=== PATIENT | male | born 1945 | race Caucasian/White ===

== ENCOUNTER 2021-02-06 07:20 | Outpatient (REF) | payer MEDICARE, SELFPAY ==
--- NOTE | ~2021-02-06 | CT_ITS ---
EXAMINATION: CT HEAD WITHOUT CONTRAST CLINICAL INFORMATION: R51.9 - Headache COMPARISON: None TECHNIQUE: Contiguous axial imaging was performed from the skull base to vertex without intravenous administration of contrast. Additional 2-D coronal and sagittal reformatted images are generated on the CT workstation and uploaded to PACS. This CT examination was performed using dose optimization techniques as appropriate, variously including the following: *Automated exposure control *Adjustment of mA and/or kV according to patient size (this includes techniques or standardized protocols for targeted exams where dose is matched to indication/reason for exam; i.e. extremities or head) *Use of iterative reconstruction technique DLP: 769 mGy-cm FINDINGS: There is no intracranial hemorrhage, hematoma, or extra-axial fluid collection. The ventricles are normal in size. There is no hydrocephalus, edema, or mass effect. The pa-white matter differentiation appears symmetric. There is no visible acute territorial infarct or mass lesion. The calvarium appears intact. There is no pneumocephalus or orbital emphysema. There is mild mucosal thickening maxillary sinuses, greater right maxillary antrum. No air-fluid levels. The middle ears and mastoid air cells are well-aerated and clear. CT/CT head/brain wo con IMPRESSION: No acute intracranial abnormality.
== END 2021-02-06 07:21 | disposition home or self-care (01) ==
LOC: HO.CT 07:20
PROVIDERS: Visit Provider Internal Medicine
DX: R51.9 Headache, unspecified (principal)
CPT/HCPCS: 70450

== ENCOUNTER 2021-06-19 08:49 | Outpatient (REF) | payer MEDICARE, SELFPAY ==
[2021-06-19 11:39] LABS: Hematocrit 42.6 % (42-52); Mean Corpuscular HGB Conc 32.9 g/dl (31.0-36.0); Mean Corpuscular Hemoglobin 31.7 pg (27.0-33.0); Mean Corpuscular Volume 96.4 fL (80-98); Platelet Count 172 X10*3/uL (160-400); Red Blood Count 4.42 X10*6/uL (4.60-5.80); Red Cell Distribution Width 12.5 % (11.0-16.0); White Blood Count 5.7 X10*3/uL (4.8-10.8)
[2021-06-19 11:53] LABS: Alanine Aminotransferase 20 U/L (0-40); Albumin Level 4.4 g/dL (3.5-5.0); Alkaline Phosphatase 49 U/L (39-117); Anion Gap 10 (12-20); Aspartate Amino Transferase 21 U/L (5-37); Bilirubin Total 1.1 mg/dL (0.0-1.0); Blood Urea Nitrogen 14 mg/dL (9-16); Calcium 9.4 mg/dL (8.4-10.2); Carbon Dioxide 28 mmol/L (22-29); Chloride 107 mmol/L (96-108); Cholesterol 143 mg/dL; Estimated Glomerular Filt Rate > 60; Glucose Fasting 91 mg/dL (60-99); HDL Cholesterol 54 mg/dL; LDL Cholesterol Calculated 79 mg/dl; Potassium 4.3 mmol/L (3.3-5.1); Sodium 141 mmol/L (135-145); Total Protein 7.3 g/dL (6.5-8.0); Triglycerides 54 mg/dL
[2021-06-19 12:04] LABS: TSH reflex Free T4 0.85 uIU/mL (0.32-4.0)
[2021-06-19 12:46] LABS: Vitamin B12 274 pg/mL (200-900)
[2021-06-19 12:54] LABS: Prostate Specific Antigen Scr 0.66 ng/mL (<0.05-4.0)
[2021-06-23 10:10] LABS: Vitamin B1 9 nmol/L (8-30)
== END 2021-06-19 08:50 | disposition home or self-care (01) ==
LOC: HO.HMGCLDS 08:49
PROVIDERS: PCP Internal Medicine; Visit Provider Internal Medicine
DX: Z00.00 Encounter for general adult medical examination without abnormal findings (principal); Z12.5 Encounter for screening for malignant neoplasm of prostate; I10 Essential (primary) hypertension; N40.0 Benign prostatic hyperplasia without lower urinary tract symptoms; R51.9 Headache, unspecified; R41.3 Other amnesia
CPT/HCPCS: 36415; 80053; 80061; 82607; 84153; 84425; 84443; 85027

== ENCOUNTER 2022-02-07 06:49 | Outpatient (REF) | payer MEDICARE, SELFPAY ==
--- NOTE | ~2022-02-07 | XR_ITS ---
EXAMINATION: XR CHEST CLINICAL INFORMATION: Generalized hyperhidrosis. COMPARISON: None TECHNIQUE: 2 views of the chest were obtained. FINDINGS: Hyperinflated lung field is present bilaterally. Both lungs are clear. The cardiomediastinal silhouette is within normal limit. No evidence of any pleural effusion or pneumothorax. Prominent bowel loops are visualized within the upper abdomen with few small air-fluid level. Mild increased midthoracic kyphosis, mild diffuse osteopenia and mild multilevel degenerative spondylosis related changes are noted in the spine. XR/XR chest 2V IMPRESSION: Hyperinflated lung field, may represent obstructing airway disease.
[2022-02-07 11:35] LABS: Hematocrit 41.2 % (42.0-52.0); Hemoglobin 13.3 g/dl (14.0-18.0); Mean Corpuscular HGB Conc 32.3 g/dl (31.0-36.0); Mean Corpuscular Hemoglobin 31.5 pg (27.0-33.0); Mean Corpuscular Volume 97.6 fL (80.0-98.0); Platelet Count 190 X10*3/uL (160-400); Red Blood Count 4.22 X10*6/uL (4.60-5.80); Red Cell Distribution Width 13.2 % (11.0-16.0); White Blood Count 5.3 X10*3/uL (4.8-10.8)
[2022-02-07 11:52] LABS: Alanine Aminotransferase 17 U/L (0-40); Alkaline Phosphatase 51 U/L (39-117); Anion Gap 10 (12-20); Aspartate Amino Transferase 22 U/L (5-37); Blood Urea Nitrogen 17 mg/dL (9-16); Carbon Dioxide 28 mmol/L (22-29); Chloride 107 mmol/L (96-108); Estimated Glomerular Filt Rate > 60; Glucose Fasting 94 mg/dL (60-99); Potassium 4.1 mmol/L (3.3-5.1); Sodium 141 mmol/L (135-145); Total Protein 6.9 g/dL (6.5-8.0)
[2022-02-07 12:15] LABS: TSH reflex Free T4 1.17 uIU/mL (0.32-4.0)
== END 2022-02-07 06:50 | disposition home or self-care (01) ==
LOC: HO.HMGCLDS 06:49
PROVIDERS: Visit Provider Internal Medicine
DX: R10.9 Unspecified abdominal pain (principal); R61 Generalized hyperhidrosis
CPT/HCPCS: 36415; 71046; 80053; 84443; 85027

== ENCOUNTER 2022-02-08 08:10 | Outpatient (REF) | payer MEDICARE, SELFPAY | END 2022-02-08 08:11 | disposition home or self-care (01) | LOC: HO.HMGCLNP 08:10 | PROVIDERS: Visit Provider Internal Medicine | DX: K29.70 Gastritis, unspecified, without bleeding (principal) | CPT/HCPCS: 87338 ==

== ENCOUNTER 2022-04-04 08:48 | Outpatient (REF) | payer MEDICARE, SELFPAY ==
[2022-04-04 11:18] LABS: MANUAL DIFF FLAG NO
[2022-04-04 11:29] LABS: Basophils Percent Auto 0.4 % (0-2); Eosinophils Absolute Auto 0.1 X10*3/uL (0.0-0.4); Eosinophils Percent Auto 1.8 % (0-4); Hematocrit 39.5 % (42.0-52.0); Hemoglobin 13.1 g/dl (14.0-18.0); Imm Gran Abs Auto 0.02 X10*3/uL (0.00-0.03); Imm Gran Pct Auto 0.4 % (0.0-0.4); Lymphocytes Absolute Auto 1.2 X10*3/uL (1.2-4.9); Lymphocytes Percent Auto 21.2 % (20-40); Mean Corpuscular HGB Conc 33.2 g/dl (31.0-36.0); Mean Corpuscular Hemoglobin 31.9 pg (27.0-33.0); Mean Corpuscular Volume 96.1 fL (80.0-98.0); Mean Platelet Volume 10.9 fL (9.4-12.4); Monocytes Absolute Auto 0.3 X10*3/uL (0.1-1.2); Monocytes Percent Auto 5.5 % (2-11); Neutrophils Absolute Auto 3.8 x10*3/uL (2.0-8.3); Neutrophils Percent Auto 70.7 % (45-73); Platelet Count 180 X10*3/uL (160-400); Red Blood Count 4.11 X10*6/uL (4.60-5.80); Red Cell Distribution Width 13.2 % (11.0-16.0); White Blood Count 5.4 X10*3/uL (4.8-10.8)
[2022-04-04 11:54] LABS: Alanine Aminotransferase 43 U/L (0-40); Albumin Level 4.2 g/dL (3.5-5.0); Alkaline Phosphatase 52 U/L (39-117); Anion Gap 11 (12-20); Aspartate Amino Transferase 30 U/L (5-37); Bilirubin Total 0.6 mg/dL (0.0-1.0); Blood Urea Nitrogen 15 mg/dL (9-16); Calcium 9.4 mg/dL (8.4-10.2); Carbon Dioxide 25 mmol/L (22-29); Chloride 111 mmol/L (96-108); Estimated Glomerular Filt Rate > 60; Glucose Random 75 mg/dL (60-115); Potassium 3.5 mmol/L (3.3-5.1); Sodium 143 mmol/L (135-145); Total Protein 7.1 g/dL (6.5-8.0)
[2022-04-04 12:01] LABS: Erythrocyte Sedimentation Rate 6 MM/HR (0-15)
== END 2022-04-04 08:49 | disposition home or self-care (01) ==
LOC: HO.HMGCLDS 08:48
PROVIDERS: PCP Internal Medicine; Visit Provider Internal Medicine
DX: R19.7 Diarrhea, unspecified (principal)
CPT/HCPCS: 36415; 80053; 85025; 85652

== ENCOUNTER 2022-04-07 07:08 | Outpatient (REF) | payer MEDICARE, SELFPAY ==
[2022-04-07 12:39] LABS: Leukocytes Stool Qualitative NEGATIVE (NEGATIVE)
== END 2022-04-07 07:09 | disposition home or self-care (01) ==
LOC: HO.HMGCLNP 07:08
PROVIDERS: Visit Provider Internal Medicine
DX: R19.7 Diarrhea, unspecified (principal)
CPT/HCPCS: 87045; 87046; 87329; 89055

== ENCOUNTER 2022-04-11 12:26 | Outpatient (REF) | payer MEDICARE, SELFPAY ==
[2022-04-11 14:44] LABS: Iron 119 mcg/dL (45-160); Percent Iron Saturation 42 % (15-50); Total Iron Binding Capacity 286 mcg/dL (228-428); Unsaturated Iron Binding 167 ug/dL
[2022-04-11 15:16] LABS: Vitamin B12 667 pg/mL (200-900)
== END 2022-04-11 12:27 | disposition home or self-care (01) ==
LOC: HO.HMGCLDS 12:26
PROVIDERS: PCP Internal Medicine; Visit Provider Internal Medicine
DX: D64.9 Anemia, unspecified (principal)
CPT/HCPCS: 36415; 82607; 82746; 83540

== ENCOUNTER 2022-12-25 11:04 | Outpatient (REF) | payer MEDICARE, SELFPAY ==
--- NOTE | ~2022-12-25 | XR_ITS ---
EXAMINATION: XR KNEE, RIGHT CLINICAL INFORMATION: Right knee pain COMPARISON: None TECHNIQUE: Four views of the right knee. FINDINGS: Mild bicompartmental degenerative changes are seen with some mild narrowing in the medial compartment as well as some minimal posterior patellar osteophytes. No joint effusion or fracture is seen. There is a calcified ovoid density seen measuring 5 x 6.2 mm in size within the joint space anteromedially. No chondrocalcinosis. No acute fractures. XR/XR knee RT 4V IMPRESSION: Bicompartmental degenerative changes with probable loose body in the joint space. No acute finding.
== END 2022-12-25 11:05 | disposition home or self-care (01) ==
LOC: HO.HMGCX 11:04
PROVIDERS: PCP Internal Medicine; Visit Provider Internal Medicine
DX: M25.561 Pain in right knee (principal)
CPT/HCPCS: 73564

== ENCOUNTER 2022-12-26 07:09 | Outpatient (REF) | payer MEDICARE, SELFPAY ==
[2022-12-26 11:34] LABS: Appearance Urine Clear; Color Urine Yellow; Glucose Urine UA Negative (Negative); Leukocyte Esterase Urine Negative (Negative); Nitrite Urine Negative (Negative); PH 5.5 (5.0-9.0); Specific Gravity - Urine 1.015 (1.005-1.025); Urine Blood Negative (Negative); Urine Ketones Negative (Negative); Urine Protein Negative (Neg-Trace)
[2022-12-26 11:38] LABS: Bacteria Urine None Seen (None Seen); Hyaline Casts Urine 0-2 /LPF (0-2); RBC Urine 0-2 /HPF (0-2); Squamous Epithelial Cell Urine 0-2 /HPF (0-2); WBC Urine 0-5 /HPF (0-5)
[2022-12-26 11:53] LABS: Hematocrit 43.8 % (42.0-52.0); Hemoglobin 14.5 g/dl (14.0-18.0); Mean Corpuscular HGB Conc 33.1 g/dl (31.0-36.0); Mean Corpuscular Hemoglobin 31.9 pg (27.0-33.0); Mean Corpuscular Volume 96.5 fL (80.0-98.0); Mean Platelet Volume 11.1 fL (9.4-12.4); Platelet Count 176 X10*3/uL (160-400); Red Blood Count 4.54 X10*6/uL (4.60-5.80); Red Cell Distribution Width 12.5 % (11.0-16.0); White Blood Count 6.7 X10*3/uL (4.8-10.8)
[2022-12-26 12:41] LABS: Alanine Aminotransferase 18 U/L (0-40); Albumin Level 4.2 g/dL (3.5-5.0); Alkaline Phosphatase 54 U/L (39-117); Anion Gap 12 (12-20); Aspartate Amino Transferase 21 U/L (5-37); Bilirubin Total 1.1 mg/dL (0.0-1.0); Blood Urea Nitrogen 14 mg/dL (9-16); Carbon Dioxide 29 mmol/L (22-29); Chloride 106 mmol/L (96-108); Cholesterol 152 mg/dL; Estimated Glomerular Filt Rate > 60; Glucose Fasting 92 mg/dL (60-99); HDL Cholesterol 52 mg/dL; LDL Cholesterol Calculated 88 mg/dl; Potassium 4.2 mmol/L (3.3-5.1); Sodium 143 mmol/L (135-145); Total Protein 6.9 g/dL (6.5-8.0); Triglycerides 60 mg/dL
[2022-12-26 12:51] LABS: Vitamin B12 347 pg/mL (200-900)
== END 2022-12-26 07:10 | disposition home or self-care (01) ==
LOC: HO.HMGCLDS 07:09
PROVIDERS: PCP Internal Medicine; Visit Provider Internal Medicine
DX: F41.9 Anxiety disorder, unspecified (principal); D64.9 Anemia, unspecified
CPT/HCPCS: 36415; 80053; 80061; 81001; 82607; 82746; 85027

== ENCOUNTER 2023-05-27 06:41 | Outpatient (REF) | payer MEDICARE, SELFPAY ==
[2023-05-29 06:09] LABS: Lyme Blot 1.33 index
[2023-05-29 12:19] LABS: Lyme Abs Screen POSITIVE
[2023-05-29 21:43] LABS: 18 KD (IgG) Band NON-REACTIVE; 23 KD (IgG) Band NON-REACTIVE; 23 KD (IgM) Band REACTIVE; 28 KD (IgG) Band NON-REACTIVE; 30 KD (IgG) Band NON-REACTIVE; 39 KD (IgM) Band NON-REACTIVE; 39KD (IgG) Band NON-REACTIVE; 41 KD (IgM) Band NON-REACTIVE; 41KD (IgG) Band NON-REACTIVE; 45 KD (IgG) Band NON-REACTIVE; 58 KD (IgG) Band NON-REACTIVE; 66 KD (IgG) Band NON-REACTIVE; 93 KD (IgG) Band REACTIVE; Lyme IgG Blot Interp NEGATIVE (NEGATIVE); Lyme IgM Blot Interp NEGATIVE (NEGATIVE)
== END 2023-05-27 06:42 | disposition home or self-care (01) ==
LOC: HO.HMGCLDS 06:41
PROVIDERS: PCP Internal Medicine; Visit Provider Internal Medicine
DX: A69.20 Lyme disease, unspecified (principal)
CPT/HCPCS: 36415; 86617; 86618

== ENCOUNTER 2023-06-11 14:02 | Outpatient (AMB) | payer MEDICARE, SELFPAY ==
[2023-06-11 15:05] VITALS: BP 122/74; PULSE 62; O2SAT 97; BMI 25.0
--- NOTE | 2023-06-11 15:05 | A.OFFPC_ITS ---
Vital Signs 06/11/23 15:05 Height 5 ft 9 in Weight 169 lb BMI 25.0 BP 122/74 Blood Pressure Location Lt brachial Position Sitting Pulse 62 Pulse Source Pulse Oximeter Pulse Oximetry (%) 97 Oxygen Delivery Method Room Air Intake Visit Reasons: Foot pain Intake Note: Pt is here today for a sick visit. Pt c/o R foot/heel pain. Pt states that he has been having headaches, BP fluctuating and memory issues. Allergies clarithromycin Allergy (Unknown, Verified 06/11/23 15:10) rash metronidazole Allergy (Unknown, Verified 06/11/23 15:10) rash Wellbutrin Allergy (Unknown, Uncoded 06/11/23 15:10) memory deficit Medication List - Last Reconciled 06/11/23 by Ivonne Aldana MD alfuzosin ER 10 mg PO QPM sertraline 50 mg PO DAILY Tobacco use date assessed: 06/11/23 Fall risk assessment: No Falls in past year Last assessed Fall Risk: 06/11/23 Dental Screening Dental Screen Date: 06/11/23 Did you have a dental visit in the last 12 months?: No Did you have a dental problem in the last 6 months where you did not have access to dental care?: No Was dental information given to patient?: Patient declined HPI Foot pain HPI Details Pt c/o R heel pain for 2 months, worse when walking. Patient denies any injury or joint swelling. Patient complains of hearing loss and like to be referred for hearing test. [facility] Medical History Abdominal pain Anxiety BPH (benign prostatic hyperplasia) Colon polyps Gastritis Memory loss New onset headache Night sweats Surgical History H/O colonoscopy Family History (Updated 12/25/22 @ 10:13 by Negrita Perales [facility]) Father No problems noted. Mother No problems noted. Social History Housing: House Alcohol intake: current Alcohol intake frequency: holidays/special occasions only Patient Tobacco Use Status: Never used Tobacco e-Cigarette/Vaping Use: Never Used Current occupational status: retired Cognitive needs: No Hearing needs: No Vision needs: Yes Questionnaire Thrive Questionnaire Date Thrive assessed: 12/25/22 AUDIT C Alcohol Use Questionnaire (AUDIT-C) 1. How often do you have a drink containing alcohol?: Monthly or less 2. How many drinks containing alcohol do you have on a typical day when you are drinking?: 1 or 2 3. How often do you have six or more drinks on one occasion?: Never Total Score: 1 KELSEY-7 AMB Questionnaire KELSEY-7 Date KELSEY - 7 assessed: 12/25/22 Source: Developed by Drs. Neal Mckeon, Hanna Anaya, Nacho Mckinney and colleagues, with an educational noelle from [employer]. Review of Systems Const All systems reviewed & are unremarkable except as noted in HPI and below Reports no additional complaints Eyes Reports no additional complaints ENT Reports no additional complaints Card Reports no additional complaints Resp Reports no additional complaints GI Reports no additional complaints Reports no additional complaints Musc Reports no additional complaints Physical exam (Primary Care) Vital Signs: Last Vital Signs Pulse 62 06/11/23 15:05 BP 122/74 06/11/23 15:05 Pulse Ox 97 06/11/23 15:05 Oxygen Delivery Method Room Air 06/11/23 15:05 BMI result Body Mass Index 25.0 Tobacco/Smoking Status: Tobacco use Status Tobacco use date assessed 06/11/23 06/11/23 15:13 Patient Tobacco Use Status Never used Tobacco 06/11/23 15:07 e-Cigarette/Vaping Use Never Used 06/11/23 15:07 Thrive Assessment: Date of Thrive Assessment Date Thrive assessed 12/25/22 06/11/23 15:07 Const General: no acute distress Resp Effort & Inspection: normal respiratory effort Auscultation: clear to auscultation bilaterally Cardio Rhythm: regular rhythm Heart sounds: S1 normal heart sound present and S2 normal heart sound present Extrem Other: There is medial aspect reproducible tenderness in the right ankle, no soft tissue swelling erythema warmth, there is a full range of motion Assessment and Plan Assessment & Plan (1) Ankle pain, right: Code(s): M25.571 - Pain in right ankle and joints of right foot Plan: Check x-ray, meloxicam is prescribed and patient will be referred for physical therapy Orders: Orders PT Evaluation and Treatment Today M25.571 - Pain in right ankle and joints of right foot Referrals Speech and Hearing Referral H91.90 - Unspecified hearing loss, unspecified ear Medications: New meloxicam 15 mg PO DAILY 30 tabs 0RF Refilled sertraline 50 mg PO DAILY 90 tabs 3RF Coding Level of Care Code Est Pt Level 3 (32443) Diagnoses Ankle pain, right M25.571
== END 2023-06-11 15:54 | disposition home or self-care (01) ==
PROVIDERS: PCP Internal Medicine; Visit Provider Internal Medicine
DX: M25.571 Pain in right ankle and joints of right foot (principal)
CPT/HCPCS: 99213

== ENCOUNTER 2023-06-11 15:44 | Outpatient (REF) | payer MEDICARE, SELFPAY ==
--- NOTE | ~2023-06-11 | XR_ITS ---
EXAMINATION: XR ANKLE, RIGHT CLINICAL INFORMATION: Pain. COMPARISON: None available. TECHNIQUE: AP, lateral, and mortise views of the right ankle. FINDINGS: No fracture. Alignment is anatomic. No erosions. There is a small heel spur. Joint spaces are maintained. Soft tissues are normal. XR/XR ankle RT min 3V IMPRESSION: No significant abnormality identified.
== END 2023-06-11 15:45 | disposition home or self-care (01) ==
LOC: HO.HMGCX 15:44
PROVIDERS: PCP Internal Medicine; Visit Provider Internal Medicine
DX: M25.571 Pain in right ankle and joints of right foot (principal)
CPT/HCPCS: 73610

== ENCOUNTER 2023-10-22 08:48 | Outpatient (AMB) | payer MEDICARE, SELFPAY ==
--- NOTE | 2023-10-22 09:09 | MHC.OFFVIS ---
Intake Vital Signs 10/22/23 09:13 Height 5 ft 9 in Weight 169 lb BMI 25.0 BP 133/75 Blood Pressure Location Rt brachial Position Sitting Pulse 67 Intake Visit Reasons: ? recurrent right inguinal hernia Intake Note: This patient presents for question of recurrent right inguinal hernia. Patient c/o; reports Hx RIH repair 3 years ago, reports stabbing pain, reports bulge, reports increasing in size, reports straining with urination. Ladder Operator Required: Yes Ladder Operator Language: Tajik Ladder Operator Name: Lindsey [id number] Information Interpreted: non-clinical & clinical Accompanied by: Other Relationship Allergies clarithromycin Allergy (Unknown, Verified 10/22/23 09:10) rash metronidazole Allergy (Unknown, Verified 10/22/23 09:10) rash Wellbutrin Allergy (Unknown, Uncoded 10/22/23 09:10) memory deficit Medication List - Last Reconciled 10/22/23 by Aubrey Pichardo MD alfuzosin ER 10 mg PO QPM meloxicam 15 mg PO DAILY sertraline 50 mg PO DAILY HPI ? recurrent right inguinal hernia HPI Details 78-year-old male here because of a recurrent right groin hernia. He had undergone repair of a right femoral hernia in 2019. He had been doing well since that time. 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 However, for the past 3 months, he was been noticing this recurrent lump on the area. This is reducible. He would describes some pain and discomfort. occasionally. [facility] Medical History Recurrent right inguinal hernia Night sweats Abdominal pain Gastritis Anxiety Colon polyps Memory loss New onset headache BPH (benign prostatic hyperplasia) Surgical History H/O colonoscopy Family History Father No problems noted. Mother No problems noted. Social History Housing: House Alcohol intake: current Alcohol intake frequency: holidays/special occasions only Patient Tobacco Use Status: Never used Tobacco e-Cigarette/Vaping Use: Never Used Current occupational status: retired Cognitive needs: No Hearing needs: No Vision needs: Yes Review of Systems Const Denies chills and Denies fever(s) Card Denies chest pain, Denies dyspnea and Denies dyspnea on exertion Resp Denies cough, Denies dyspnea and Denies dyspnea on exertion GI Denies hematochezia and Denies change in bowel habits Denies hematuria and Denies difficulty urinating Musc Denies back pain and Denies limited range of motion Neuro Details: Memory loss Denies focal weakness and Denies convulsions Psych Denies depression and Denies mood swings Physical Exam Vital Signs: Last Vital Signs Pulse 67 10/22/23 09:13 BP 133/75 10/22/23 09:13 BMI result Body Mass Index 25.0 Const General: comfortable and no acute distress Orientation/consciousness: patient oriented x3 Neck Neck: Yes no lymphadenopathy Resp Auscultation: clear to auscultation bilaterally Cardio Rhythm: regular rhythm GI Other: Mass on the right groin area, prominent with Valsalva Palpation (GI): Soft to palpation, nontender and no guarding Neuro General: patient oriented x3 Assessment & Plan Assessment & Plan (1) Recurrent right inguinal hernia: Code(s): K40.91 - Unilateral inguinal hernia, without obstruction or gangrene, recurrent Plan: It appears she has a recurrence of his femoral hernia. I am going to send her for a CT scan of the abdomen and pelvis to find this and aid in surgical approach. He looks well otherwise it has a benign exam. I will see him in the office after his CAT scan. He understands the plan well. The visit was done with investigation division sergeant services. Orders: Orders CT abdomen pelvis wo IV con Today K40.91 - Unilateral inguinal hernia, without obstruction or gangrene, recurrent Coding Level of Care Code New Pt Level 3 (36036) Diagnoses Recurrent right inguinal hernia K40.91
[2023-10-22 09:13] VITALS: BP 133/75; PULSE 67; BMI 25.0
== END 2023-10-22 09:20 | disposition home or self-care (01) ==
PROVIDERS: PCP Internal Medicine; Visit Provider Surgery
DX: K40.91 Unilateral inguinal hernia, without obstruction or gangrene, recurrent (principal)
CPT/HCPCS: 99203

== ENCOUNTER → 2023-10-22 08:48 | Outpatient (BNVA) | payer MEDICARE, SELFPAY | PROVIDERS: PCP Internal Medicine; Visit Provider Surgery | DX: K40.91 Unilateral inguinal hernia, without obstruction or gangrene, recurrent (principal) | CPT/HCPCS: 99202 ==

== ENCOUNTER 2023-11-26 13:59 | Outpatient (REF) | payer MEDICARE, SELFPAY | END 2023-11-26 14:00 | disposition home or self-care (01) | LOC: HO.SH 13:59 | PROVIDERS: Visit Provider Internal Medicine | DX: Z01.118 Encounter for examination of ears and hearing with other abnormal findings (principal); H90.3 Sensorineural hearing loss, bilateral | CPT/HCPCS: 92557; 92567 ==

== ENCOUNTER 2023-11-27 13:26 | Outpatient (REF) | payer MEDICARE, SELFPAY ==
--- NOTE | ~2023-11-27 | CT_ITS ---
EXAMINATION: CT ABDOMEN AND PELVIS WITHOUT CONTRAST CLINICAL INFORMATION: Unilateral inguinal hernia without obstruction or gangrene. COMPARISON: CT abdomen and pelvis 05/21/2020. TECHNIQUE: Multidetector volumetric imaging was performed from the superior aspect of the liver through the pubic symphysis. Sagittal and coronal reformatted images were obtained on the technologist's workstation. This CT examination was performed using dose optimization techniques as appropriate, variously including the following: *Automated exposure control *Adjustment of mA and/or kV according to patient size (this includes techniques or standardized protocols for targeted exams where dose is matched to indication/reason for exam; i.e. extremities or head) *Use of iterative reconstruction technique DLP: 895 mGy-cm FINDINGS: LUNG BASES: Stable tiny calcified granuloma in the right lower lobe. Stable stellate calcified scarring in the left lower lobe. No follow-up imaging is recommended as per Fleischner Society guidelines. LIVER, GALLBLADDER, AND BILIARY TREE: Liver appears stable with no discrete mass or ductal dilatation. Gallbladder is unremarkable. PANCREAS: No discrete pancreatic mass or pancreatic ductal dilatation. SPLEEN: Spleen is normal in size. ADRENAL GLANDS: No adrenal mass. KIDNEYS AND URETERS: The kidneys are normal in size, shape, and attenuation. No hydronephrosis, hydroureter, or calculi seen. No perinephric stranding. Simple parapelvic cysts bilaterally without overt hydronephrosis. BLADDER: The bladder wall is mildly thickened and trabeculated consistent with chronic bladder outlet pathophysiology. GASTROINTESTINAL TRACT: Hiatal hernia repair is suspected. There is a prominent duodenal diverticulum in the D3/D4 segment. Otherwise the small bowel is unremarkable. The large bowel is normal in caliber. ABDOMINAL WALL: Suspect the patient has undergone repair of the previously seen right femoral hernia. There is a small fat-containing right inguinal hernia which appears to be indirect type. There is a small fat-containing left inguinal hernia on the left that appears to be direct type. LYMPH NODES: No lymphadenopathy. VASCULAR: Mild aortoiliac atherosclerosis without aortic aneurysm. PELVIC VISCERA: Prostate is mildly enlarged. OSSEOUS STRUCTURES: Degenerative changes in the spine. CT/CT abdomen pelvis wo IV con IMPRESSION: Small bilateral fat-containing inguinal hernias, suspect indirect on the right and direct on the left. Fleischner guidelines were followed.
== END 2023-11-27 13:27 | disposition home or self-care (01) ==
LOC: HO.CT 13:26
PROVIDERS: PCP Internal Medicine; Visit Provider Surgery
DX: K40.91 Unilateral inguinal hernia, without obstruction or gangrene, recurrent (principal)
CPT/HCPCS: 74176

== ENCOUNTER → 2023-12-03 15:05 | Outpatient (BNVA) | payer MEDICARE, SELFPAY | PROVIDERS: PCP Internal Medicine; Visit Provider Surgery | DX: K40.90 Unilateral inguinal hernia, without obstruction or gangrene, not specified as recurrent (principal) | CPT/HCPCS: 99212 ==

== ENCOUNTER 2023-12-03 15:06 | Outpatient (AMB) | payer MEDICARE, SELFPAY ==
--- NOTE | 2023-12-03 15:25 | A.OFFVIS_ITS ---
Intake Vital Signs 12/03/23 15:34 Height 5 ft 9 in Weight 171 lb BMI 25.2 BP 140/68 H Blood Pressure Location Lt brachial Position Sitting Pulse 66 Intake Visit Reasons: Recurrent right inguinal hernia, CT results Intake Note: This patient presents for a follow-up assessment for CT-Scan results. Pt c/o; reports pain, reports feels hernia has increased in size. Upholsterer Assembly Line Required: Yes Upholsterer Assembly Line Language: Croatian Upholsterer Assembly Line Name: Tenzin [id number] [employer] Information Interpreted: non-clinical & clinical Accompanied by: Spouse Allergies clarithromycin Allergy (Unknown, Verified 12/03/23 15:36) rash metronidazole Allergy (Unknown, Verified 12/03/23 15:36) rash Wellbutrin Allergy (Unknown, Uncoded 12/03/23 15:36) memory deficit HPI Recurrent right inguinal hernia, CT results HPI Details 78-year-old male here because of a recur rent right groin hernia. He had undergone repair of a right femoral hernia in 2019. He had been doing well since that time. 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 However, for the past 4 months, he was been noticing this recurrent lump a little higher on the area. This is reducible. He would describes some pain and discomfort occasionally. I had sent him for a CT scan and he is here to discuss the findings. He denies any new complaints otherwise. He has good GI functions. [facility] Medical History (Updated 12/14/23 @ 15:52 by Ivonne Aldana MD) Right inguinal hernia Recurrent right inguinal hernia Night sweats Abdominal pain Gastritis Anxiety Colon polyps Memory loss New onset headache BPH (benign prostatic hyperplasia) Surgical History H/O colonoscopy Family History Father No problems noted. Mother No problems noted. Social History Housing: House Alcohol intake: current Alcohol intake frequency: holidays/special occasions only Patient Tobacco Use Status: Never used Tobacco e-Cigarette/Vaping Use: Never Used Current occupational status: retired Cognitive needs: No Hearing needs: No Vision needs: Yes Review of Systems Const Denies chills and Denies fever(s) Card Denies chest pain, Denies dyspnea and Denies dyspnea on exertion Resp Denies cough, Denies dyspnea and Denies dyspnea on exertion GI Denies hematochezia and Denies change in bowel habits Denies hematuria and Denies difficulty urinating Musc Denies back pain and Denies limited range of motion Neuro Denies focal weakness and Denies convulsions Psych Denies depression and Denies mood swings Physical Exam Vital Signs: Last Vital Signs Pulse 66 12/03/23 15:34 BP 140/68 H 12/03/23 15:34 BMI result Body Mass Index 25.2 Const General: comfortable and no acute distress Orientation/consciousness: patient oriented x3 Neck Neck: Yes no lymphadenopathy Resp Auscultation: clear to auscultation bilaterally Cardio Rhythm: regular rhythm GI Other: Palpable hernia with Valsalva on the upper part of the right groin, easily reducible Palpation (GI): Soft to palpation, nontender and no guarding Neuro General: patient oriented x3 Assessment & Plan Assessment & Plan (1) Right inguinal hernia: Code(s): K40.90 - Unilateral inguinal hernia, without obstruction or gangrene, not specified as recurrent Plan: He has a reducible right inguinal hernia, felt with Valsalva. He does have a history of a right femoral hernia repaired in 2020. I have reviewed his CAT scan and this new hernia is away from the previous femoral hernia repair. I therefore explained to him the option of proceeding with repair of the right inguinal hernia with mesh. I discussed the risks including but not limited to bleeding, infections, bowel injury, recurrence, postop pain, as well as the benefits and alternatives. He understands and wants to proceed because of symptoms. Coding Level of Care Code Est Pt Level 3 (34056) Diagnoses Right inguinal hernia K40.90
[2023-12-03 15:34] VITALS: BP 140/68; PULSE 66; BMI 25.2
== END 2023-12-03 15:44 | disposition home or self-care (01) ==
PROVIDERS: PCP Internal Medicine; Visit Provider Surgery
DX: K40.90 Unilateral inguinal hernia, without obstruction or gangrene, not specified as recurrent (principal)
CPT/HCPCS: 99213

== ENCOUNTER 2024-01-05 07:22 | Day surgery (SDC) | payer MEDICARE, SELFPAY ==
[2024-01-01 13:12] VITALS: BMI 25.2
--- NOTE | 2024-01-04 10:50 | HO.ANESPROP2 ---
Documented by User: Jess Douglas NP 01/04/24 10:50 HPI - Anesthesia Eval Consult details Narrative: 78yo M for Right Hernia Inguinal Reducible with mesh PMFSH Active Problems Active Problems: All Active Problems (Updated 12/29/23 @ 08:48 by Ivonne Aldana MD) Annual physical exam (Acute) Hearing loss (Acute) Ankle pain, right (Acute) Erythema migrans (Lyme disease) (Acute) Knee pain, right (Acute) Anemia (Acute) Diarrhea (Acute) Right inguinal hernia (Acute) Recurrent right inguinal hernia (Acute) Night sweats (Acute) Abdominal pain (Acute) Gastritis (Acute) Anxiety (Acute) Colon polyps (Acute) BPH (benign prostatic hyperplasia) (Acute) Memory loss (Acute) New onset headache (Acute) Past Medical History Medical History (Updated 01/05/24 @ 08:44 by Mercedes Roberts MD) Hyperlipidemia HTN (hypertension) Right inguinal hernia Recurrent right inguinal hernia Night sweats Abdominal pain Gastritis Anxiety Colon polyps Memory loss New onset headache BPH (benign prostatic hyperplasia) Family History Family History Father No problems noted. Mother No problems noted. Surgical History Surgical History (Updated 01/05/24 @ 08:44 by Mercedes Roberts MD) Hx of hernia repair History of femoral hernia repair H/O colonoscopy Social History Social History Housing: House Alcohol intake: current Alcohol intake frequency: holidays/special occasions only Patient Tobacco Use Status: Never used Tobacco e-Cigarette/Vaping Use: Never Used Use of substances other than those prescribed or required for medical reasons: No Are you DNR?: No Advance Directives: No Advance Directives Information Provided: Yes Current occupational status: retired Cognitive needs: No Hearing needs: No Vision needs: Yes Meds Allergies Allergy/AdvReac Type Severity Reaction Status Date / Time bupropion [From Wellbutrin] Allergy Intermediate memory Verified 01/05/24 08:16 deficit clarithromycin Allergy Intermediate rash Verified 01/05/24 08:16 metronidazole Allergy Intermediate rash Verified 01/05/24 08:16 Home Medications Medication Instructions Recorded Confirmed Last Taken Type alfuzosin 10 mg tablet,extended 10 mg PO QPM 02/06/22 01/05/24 Unknown History release 24 hr Exam Height,Weight and Vital Signs: Height 5 ft 9 in Weight 77.564 kg Assessment and Plan Assessment Anesthesia Assessment: Chart Reviewed Documented by User: Mercedes Roberts MD 01/05/24 08:49 HPI - Anesthesia Eval Consult details Narrative: 78yo M for Repair of Right Reducible Inguinal Hernia with mesh PMFSH Active Problems Active Problems: All Active Problems (Updated 01/05/24 @ 08:30 by Mercedes Roberts MD) Annual physical exam (Acute) Hearing loss (Acute) Ankle pain, right (Acute) Erythema migrans (Lyme disease) (Acute) Knee pain, right (Acute) Anemia (Acute) Diarrhea (Acute) Right inguinal hernia (Acute) Recurrent right inguinal hernia (Acute) Night sweats (Acute) Abdominal pain (Acute) Gastritis (Acute) Anxiety (Acute) Colon polyps (Acute) BPH (benign prostatic hyperplasia) (Acute) Memory loss (Acute) New onset headache (Acute) Past Medical History Medical History (Updated 01/05/24 @ 08:44 by Mercedes Roberts MD) Hyperlipidemia HTN (hypertension) Right inguinal hernia Recurrent right inguinal hernia Night sweats Abdominal pain Gastritis Anxiety Colon polyps Memory loss New onset headache BPH (benign prostatic hyperplasia) Family History Family History Father No problems noted. Mother No problems noted. Family history of problems with anesthesia: No Surgical History Surgical History (Updated 01/05/24 @ 08:44 by Mercedes Roberts MD) Hx of hernia repair History of femoral hernia repair H/O colonoscopy History of Problems with Anesthesia: No Social History Social History Housing: House Alcohol intake: current Alcohol intake frequency: holidays/special occasions only Patient Tobacco Use Status: Never used Tobacco e-Cigarette/Vaping Use: Never Used Use of substances other than those prescribed or required for medical reasons: No Are you DNR?: No Advance Directives: No Advance Directives Information Provided: Yes Current occupational status: retired Cognitive needs: No Hearing needs: No Vision needs: Yes Meds Allergies Allergy/AdvReac Type Severity Reaction Status Date / Time bupropion [From Wellbutrin] Allergy Intermediate memory Verified 01/05/24 08:16 deficit clarithromycin Allergy Intermediate rash Verified 01/05/24 08:16 metronidazole Allergy Intermediate rash Verified 01/05/24 08:16 Home Medications Medication Instructions Recorded Confirmed Last Taken Type alfuzosin 10 mg tablet,extended 10 mg PO QPM 02/06/22 01/05/24 Unknown History release 24 hr Exam Height,Weight and Vital Signs: Height 5 ft 9 in Weight 77.564 kg Vital Signs Temp Pulse Resp BP Pulse Ox O2 Del Method 01/05/24 08:16 98.3 F 72 16 141/80 H 99 Room Air Airway Mallampati Class: III TM Dist: >3cm Neck ROM: Full Denture: Upper Partial: Lower Loose/Missing/Broken Teeth: Yes (Few teeth in front bottom. Slightly loose. Aware of possibility of dislodgement) Heart: RRR Lungs: CTAB Assessment and Plan Assessment Anesthesia Assessment: Anesthesia Plan Discussed and Chart Reviewed Final Anesthetic Review Family History of Problems with Anesthesia: No History of Problems with Anesthesia: No NPO: Yes ASA Class: II Final Preanesthetic Review: No Changes in Pt Med Stat, Meds/Allgs Chart Reviewed, Consent Obtained/Reviewed and Anes Risks/Benef Reviewed Patient Risk: Intermediate Procedure Risk: Low Assessment/Block/Sedation in SS: Assess/Block/Sedation-SS Anesthetic Plan Anesthetic Plan: GA Disposition: Standard PACU
[2024-01-05] VITALS (13 sets, daily range): BP systolic 105–141; BP diastolic 62–83; PULSE 64–72; RESP 16; TEMP 36.6–36.8; O2SAT 94–99
--- NOTE | 2024-01-05 08:29 | MHC.SHP ---
Pre-Procedural Eval Section A - 24 Hr Update-Section A only Date of Service: 01/05/24 Section B - Complete if H&P > 30 days Chief Complaint: Unilateral inguinal hernia, without obstruction or Details of Present Illness: Has right inguinal hernia, reducible; history of care of a femoral hernia on the right side in the past Relevant Family History (Specify if Yes): No Relevant Social History: None Present Medications: see Short Stay Collaborative assessment Medical History: Significant History (Chronic anemia, BPH, memory loss, gastritis) Allergies: Allergies Allergy/AdvReac Type Severity Reaction Status Date / Time bupropion [From Wellbutrin] Allergy Intermediate memory Verified 01/05/24 08:16 deficit clarithromycin Allergy Intermediate rash Verified 01/05/24 08:16 metronidazole Allergy Intermediate rash Verified 01/05/24 08:16 Review of Systems Sugical H&P ROS: Negative: Constitution, Cardiovascular, Respiratory, Neurological, Psychiatric, Hem-Onc, Allergic/Immunologic, Gastrointestinal, Genitourinary, Musculoskeletal, Integumentary, Endocrine and Eyes/Ears/Nose/Throat Exam Surgical H&P Exam: Normal: HEENT, Normal: Heart, Normal: Lungs, Normal: Extremities, Normal: Skin and Normal: Neurological and Significant Findings: Abdomen (Reducible right inguinal hernia) Plan Diagnosis/Plan: Unchanged I have reviewed the history and physical and performed a pertinent physical examination on my patient. No changes have occurred unless specified. Time Spent With Patient Time: Total time managing care of this patient today ____ minutes.
[2024-01-05] MEDS: Lactated Ringers 1,000 ML 100 ML IVCONT (08:30)
--- NOTE | 2024-01-05 09:49 | P.OP_ITS ---
Operative Note Operative Note Date of Service: 01/05/24 Narrative: Preop diagnosis: Right inguinal hernia Postop diagnosis: Right inguinal hernia, indirect Procedure: Repair of a right inguinal hernia with mesh Surgeon: Aubrey Pichardo MD assistant professor of nursing: [employer] The patient is a 78-year-old male with note of reducible mass on the right groin consistent with a right inguinal hernia. He understood the technique of repair with mesh. He was aware of the risks, benefits, and alternatives He was brought to the operating room. He was placed supine under general anesthesia via laryngeal mask airway. The right groin was prepped and draped in the usual sterile fashion. A surgical time-out was done. The patient received cefazolin 2 g IV preoperatively I infiltrated my planned line of incision with lidocaine 1%. I made the incision on the skin using blade 15 along an imaginary line from the anterior superior iliac spine to the pubic ramus. This was carried down through the full-thickness of the skin and subcutaneous fat until I was able to visualize the external oblique aponeurosis. It was noted that patient did have a previous repair of a right femoral hernia so there was note of fibrotic changes in this area. We are able to clearly define the external ring. I made an incision on the external oblique aponeurosis overlying the canal and this was extended inferomedially to connect to the external ring. At this point the inguinal canal was therefore entered. I applied hemostats at the divided edges of the external oblique aponeurosis for retraction. The large sac was seen. I proceeded to bluntly dissect the sac along with the rest of the spermatic cord off of the rest of the anal including in the inguinal ligament until I was able to pass a Jelani drain around this. The Jelani drain was used for retraction. I identified the vas deferens and accompanying vessels. These were protected during the dissection. I the sac off of the rest of the cord contents. This sac contained sentinel fat. I was able to reduce th e sac and omental fat through the internal ring. This was therefore an indirect hernia. I reinforced the internal ring with a large sized Prolene plug. The plug was secured to the shelving edge of the inguinal ligament laterally and the internal oblique superiorly and medially using the inner leaves of the mesh with Prolene 2 sutures. I reinforced the floor of the canal with a keyhole mesh. T he tails of the mesh were passed around the cord at the level of the internal ring and were secured together with Prolene 2 sutures. I flattened the mesh to cover the entire floor. Secured the mesh with Prolene 2 sutures to the shelving edge of the inguinal meant laterally and the internal oblique superiorly and medially as well as the pubic ramus inferomedially. I copiously irrigated. There was note of good hemostasis. Once hemostasis was confirmed, I proceeded to close the divided external oblique aponeurosis using Prolene 2 sutures to recreate the external ring. I reapposed the subcutaneous layer with Polysorb 3- 0 interrupted sutures. Skin closure was achieved with Polysorb 4-0 subcuticular running sutures. The incision was infiltrated with Marcaine 0.5% for postop analgesia. Dressings were applied. The procedure was completed. The patient tolerated procedure well. There were no immediate complications. Initial and final counts of sponges and instruments were correct. Estimated blood loss was about 10 cc. The patient was extubated without difficulty and transferred to the recovery room with stable vital signs.
[2024-01-05] MEDS: fentaNYL citrate/PF 100 MCG/2 ML VIAL 25 MCG IVPUSH ×4 (10:24→10:47)
== END 2024-01-05 11:44 | disposition home or self-care (01) ==
PROVIDERS: PCP Internal Medicine; Visit Provider Surgery
PROC: (CPT 49505; principal; 2024-01-05 09:10)
DX: K40.90 Unilateral inguinal hernia, without obstruction or gangrene, not specified as recurrent (principal); N40.0 Benign prostatic hyperplasia without lower urinary tract symptoms; I10 Essential (primary) hypertension; E78.5 Hyperlipidemia, unspecified; Z79.899 Other long term (current) drug therapy; Z88.1 Allergy status to other antibiotic agents; Z88.8 Allergy status to other drugs, medicaments and biological substances; Z98.890 Other specified postprocedural states
CPT/HCPCS: 49505; C1781; J0131; J0690; J1100; J2405; J2704; J2795; J3010

== ENCOUNTER → 2024-01-05 07:22 | Outpatient (BNV) | payer MEDICARE, SELFPAY | PROVIDERS: PCP Internal Medicine; Visit Provider Surgery | DX: K40.90 Unilateral inguinal hernia, without obstruction or gangrene, not specified as recurrent (principal) | CPT/HCPCS: 49505 ==

== ENCOUNTER 2024-01-18 10:19 | Outpatient (AMB) | payer MEDICARE, SELFPAY ==
--- NOTE | 2024-01-18 10:21 | MHC.OFFVIS ---
Intake Intake Visit Reasons: S/P RIH w/mesh Intake Note: This patient presents for a post-op assessment status post right inguinal hernia repair with mesh. Pt c/o; reports still having pain but it is getting better. Surgery date: 01/05/2024 Imaging Tech Required: No Accompanied by: Self / Same As Patient Allergies bupropion [From Wellbutrin] Allergy (Intermediate, Verified 01/18/24 10:21) memory deficit clarithromycin Allergy (Intermediate, Verified 01/18/24 10:21) rash metronidazole Allergy (Intermediate, Verified 01/18/24 10:21) rash HPI S/P RIH w/mesh HPI Details He underwent repair of right inguinal hernia with mesh last 01/05/2024. He tolerated procedure well. He currently feels well denies significant complaints. [facility] Medical History Hyperlipidemia HTN (hypertension) Right inguinal hernia Recurrent right inguinal hernia Night sweats Abdominal pain Gastritis Anxiety Colon polyps Memory loss New onset headache BPH (benign prostatic hyperplasia) Surgical History History of right inguinal hernia repair (~01/05/24) Hx of hernia repair History of femoral hernia repair H/O colonoscopy Family History Father No problems noted. Mother No problems noted. Social History Housing: House Alcohol intake: current Alcohol intake frequency: holidays/special occasions only Comment: COUNTS CORRECT Patient Tobacco Use Status: Never used Tobacco e-Cigarette/Vaping Use: Never Used Current occupational status: retired Cognitive needs: No Hearing needs: No Vision needs: Yes Review of Systems Const Denies chills and Denies fever(s) Card Denies chest pain, Denies dyspnea and Denies dyspnea on exertion Resp Denies cough, Denies dyspnea and Denies dyspnea on exertion GI Denies hematochezia and Denies change in bowel habits Denies hematuria and Denies difficulty urinating Musc Denies back pain and Denies limited range of motion Neuro Denies focal weakness and Denies convulsions Psych Denies depression and Denies mood swings Physical Exam Const General: comfortable and no acute distress GI Other: Right inguinal hernia repair site is well healed, not infected, repair intact, skin rosy in place Palpation (GI): Soft to palpation and not firm Assessment & Plan Assessment & Plan (1) Right inguinal hernia: Code(s): K40.90 - Unilateral inguinal hernia, without obstruction or gangrene, not specified as recurrent Plan: Status post right inguinal hernia repair with mesh. He is doing very well. The repair site is intact. His incision is well healed. I removed all his skin rosy. There has no evidence any infection. He was advised to avoid lifting of anything more than 20 lb for at least 2 more weeks. He can follow up on a p.r.n. basis. Coding Level of Care Code Global (81245) Diagnoses Right inguinal hernia K40.90
== END 2024-01-18 10:32 | disposition home or self-care (01) ==
PROVIDERS: PCP Internal Medicine; Visit Provider Surgery
DX: K40.90 Unilateral inguinal hernia, without obstruction or gangrene, not specified as recurrent (principal)
CPT/HCPCS: 99024

== ENCOUNTER → 2024-01-18 10:19 | Outpatient (BNVA) | payer MEDICARE, SELFPAY | PROVIDERS: PCP Internal Medicine; Visit Provider Surgery | DX: K40.90 Unilateral inguinal hernia, without obstruction or gangrene, not specified as recurrent (principal); Z48.815 Encounter for surgical aftercare following surgery on the digestive system | CPT/HCPCS: 99212 ==

== ENCOUNTER 2024-02-09 08:40 | Outpatient (REF) | payer MEDICARE, SELFPAY ==
[2024-02-09 10:16] LABS: MANUAL DIFF FLAG NO
[2024-02-09 10:40] LABS: Appearance Urine Clear; Color Urine Yellow; Glucose Urine UA Negative (Negative); Leukocyte Esterase Urine Negative (Negative); Nitrite Urine Negative (Negative); PH 5.5 (5.0-9.0); Urine Blood Negative (Negative); Urine Ketones Negative (Negative); Urine Protein Negative (Neg-Trace)
[2024-02-09 10:44] LABS: Basophils Percent Auto 0.4 % (0-2); Eosinophils Absolute Auto 0.1 X10*3/uL (0.0-0.4); Eosinophils Percent Auto 1.3 % (0-4); Hemoglobin 13.7 g/dl (14.0-18.0); Imm Gran Abs Auto 0.01 X10*3/uL (0.00-0.03); Imm Gran Pct Auto 0.2 % (0.0-0.4); Lymphocytes Absolute Auto 1.4 X10*3/uL (1.2-4.9); Lymphocytes Percent Auto 25.3 % (20-40); Mean Corpuscular HGB Conc 32.6 g/dl (31.0-36.0); Mean Corpuscular Hemoglobin 31.7 pg (27.0-33.0); Mean Corpuscular Volume 97.2 fL (80.0-98.0); Mean Platelet Volume 11.3 fL (9.4-12.4); Monocytes Absolute Auto 0.4 X10*3/uL (0.1-1.2); Monocytes Percent Auto 6.6 % (2-11); Neutrophils Absolute Auto 3.5 x10*3/uL (2.0-8.3); Neutrophils Percent Auto 66.2 % (45-73); Platelet Count 153 X10*3/uL (160-400); Red Blood Count 4.32 X10*6/uL (4.60-5.80); Red Cell Distribution Width 12.8 % (11.0-16.0); White Blood Count 5.3 X10*3/uL (4.8-10.8)
[2024-02-09 10:46] LABS: Bacteria Urine None Seen (None Seen); Hyaline Casts Urine 0-2 /LPF (0-2); RBC Urine 0-2 /HPF (0-2); Squamous Epithelial Cell Urine 0-2 /HPF (0-2); WBC Urine 0-5 /HPF (0-5)
[2024-02-09 11:57] LABS: PSA,Total (Free>4and<10) 0.84 ng/mL (0.00-4.00)
[2024-02-09 12:02] LABS: Alanine Aminotransferase 18 U/L (0-40); Albumin Level 4.2 g/dL (3.5-5.0); Alkaline Phosphatase 58 U/L (39-117); Anion Gap 10 (12-20); Aspartate Amino Transferase 21 U/L (5-37); Bilirubin Total 0.8 mg/dL (0.0-1.0); Blood Urea Nitrogen 16 mg/dL (9-16); Calcium 9.6 mg/dL (8.4-10.2); Carbon Dioxide 28 mmol/L (22-29); Chloride 108 mmol/L (96-108); Cholesterol 138 mg/dL (<200); Estimated Glomerular Filt Rate > 60; Glucose Fasting 93 mg/dL (60-99); HDL Cholesterol 49 mg/dL (>40); LDL Cholesterol Calculated 80 mg/dL (<100); Potassium 4.1 mmol/L (3.3-5.1); Sodium 142 mmol/L (135-145); Total Protein 7.5 g/dL (6.5-8.0); Triglycerides 45 mg/dL (<150)
== END 2024-02-09 08:41 | disposition home or self-care (01) ==
LOC: HO.HMGCLDS 08:40
PROVIDERS: PCP Internal Medicine; Visit Provider Internal Medicine
DX: Z00.00 Encounter for general adult medical examination without abnormal findings (principal); R19.7 Diarrhea, unspecified; N40.0 Benign prostatic hyperplasia without lower urinary tract symptoms; R41.3 Other amnesia; Z12.5 Encounter for screening for malignant neoplasm of prostate
CPT/HCPCS: 36415; 80053; 80061; 81001; 84153; 85025

== ENCOUNTER 2024-02-12 09:55 | Outpatient (AMB) | payer MEDICARE, SELFPAY ==
--- NOTE | 2024-02-12 10:07 | MHC.PC.OV ---
Vital Signs 02/12/24 10:14 Height 5 ft 9 in Weight 169 lb BMI 25.0 BP 118/76 Blood Pressure Location Lt brachial Position Sitting Pulse 65 Pulse Source Pulse Oximeter Pulse Oximetry (%) 98 Oxygen Delivery Method Room Air Intake Visit Reasons: Follow up Intake Note: Pt is here today for a follow up visit on labs. Allergies bupropion [From Wellbutrin] Allergy (Intermediate, Verified 02/12/24 10:16) memory deficit clarithromycin Allergy (Intermediate, Verified 02/12/24 10:16) rash metronidazole Allergy (Intermediate, Verified 02/12/24 10:16) rash Tobacco use date assessed: 02/12/24 Fall risk assessment: No Falls in past year Last assessed Fall Risk: 02/12/24 Dental Screening Dental Screen Date: 02/12/24 Did you have a dental visit in the last 12 months?: Yes Did you have a dental problem in the last 6 months where you did not have access to dental care?: No Was dental information given to patient?: Patient has dentist HPI Follow up HPI Details Pt presents for f/u R inguinal hernia. Anxiety is stable on sertraline and BPH symptoms controlled on alfuzosin. [facility] Medical History (Updated 02/12/24 @ 12:29 by Ivonne Aldana MD) Right inguinal hernia Recurrent right inguinal hernia Night sweats Abdominal pain Gastritis Anxiety Colon polyps Memory loss BPH (benign prostatic hyperplasia) Surgical History History of right inguinal hernia repair (~01/05/24) Hx of hernia repair History of femoral hernia repair H/O colonoscopy Family History Father No problems noted. Mother No problems noted. Social History Housing: House Alcohol intake: current Alcohol intake frequency: holidays/special occasions only Comment: COUNTS CORRECT Patient Tobacco Use Status: Never used Tobacco e-Cigarette/Vaping Use: Never Used service: No Current occupational status: retired Cognitive needs: No Hearing needs: No Vision needs: Yes Questionnaire PHQ-9 Over the last 2 weeks, how often have you been bothered by any of the following problems? 1. Little interest or pleasure in doing things: not at all 2. Feeling down, depressed, or hopeless: not at all 3. Trouble falling or staying asleep, or sleeping too much: not at all 4. Feeling tired or having little energy: not at all 5. Poor appetite or overeating: not at all 6. Feeling bad about yourself - or that you are a failure or have let yourself or your family down: not at all 7. Trouble concentrating on things, such as reading the newspaper or watching television: not at all 8. Moving or speaking so slowly that other people could have noticed. Or the opposite - being so fidgety or restless that you have been moving around a lot more than usual: not at all 9. Thoughts that you would be better off or of hurting yourself in some way: not at all Total score: 0 Depression Screening Interpretation: Negative Depression Screening Done: Yes Source: Developed by Drs. Neal Mckeon, Hanna Anaya, Nacho Mckinney and colleagues, with an educational noelle from [employer]. Thrive Questionnaire Date Thrive assessed: 02/12/24 I am a: Patient What is your living situation today?: I have a steady place to live Within the past 12 months, did the food you bought not last and you didn't have the money to get more?: Never true Within the past 12 months, did you worry whether your food would run out before you got money to buy more?: Never true Do you have trouble paying for medicines?: No Do you have trouble getting transportation to medical appointments?: No Do you have trouble paying your heating and electricity bill?: No Do you have trouble taking care of your child, family member or friend?: No Do you have trouble with day-to-day activities such as bathing, preparing meals, shopping, managing finances, etc.?: No Are you currently unemployed and looking for a job?: No Are you interested in more education?: No Please select the resources that you would like help with: None THRIVE Score: 0 AUDIT C Alcohol Use Questionnaire (AUDIT-C) 1. How often do you have a drink containing alcohol?: Monthly or less 2. How many drinks containing alcohol do you have on a typical day when you are drinking?: 1 or 2 3. How often do you have six or more drinks on one occasion?: Never Total Score: 1 KELSEY-7 AMB Questionnaire KELSEY-7 Date KELSEY - 7 assessed: 02/12/24 Feeling nervous, anxious, or on edge: 0 = Not at all Not being able to stop or control worryin = Not at all Worrying too much about different things: 0 = Not at all Trouble relaxin = Not at all Being so restless that it is hard to sit still: 0 = Not at all Becoming easily annoyed or irritable: 0 = Not at all Feeling afraid as if something awful might happen: 0 = Not at all Total KELSEY-7 score (0-4 normal; 5-9 mild; 10-14 moderate; 15-21 severe): 0 Source: Developed by Drs. Neal Mckeon, Hanna Anaya, Nacho Mckinney and colleagues, with an educational noelle from [employer]. Review of Systems Const All systems reviewed & are unremarkable except as noted in HPI and below Eyes Reports no additional complaints ENT Reports no additional complaints Card Reports no additional complaints Resp Reports no additional complaints GI Reports no additional complaints Reports no additional complaints Physical exam (Primary Care) Vital Signs: Last Vital Signs Pulse 65 02/12/24 10:14 BP 118/76 02/12/24 10:14 Pulse Ox 98 02/12/24 10:14 Oxygen Delivery Method Room Air 02/12/24 10:14 BMI result Body Mass Index 25.0 Tobacco/Smoking Status: Tobacco use Status Tobacco use date assessed 02/12/24 02/12/24 10:23 Patient Tobacco Use Status Never used Tobacco 02/12/24 10:23 e-Cigarette/Vaping Use Never Used 02/12/24 10:08 PHQ-9: PHQ-9 Score PHQ-9: Total score 0 02/12/24 10:52 Depression Screening Interpretation: Negative Thrive Assessment: Date of Thrive Assessment Date Thrive assessed 02/12/24 02/12/24 10:23 Const General: no acute distress HENMT Head: Yes normal to inspection Face and sinus: Yes normal facial exam Throat: Yes posterior oropharynx normal Eyes General: appearance normal, both eyes and all related structures Neck Neck: Yes supple Resp Effort & Inspection: normal respiratory effort Auscultation: clear to auscultation bilaterally Cardio Rhythm: regular rhythm Heart sounds: S1 normal heart sound present and S2 normal heart sound present GI Inspection: Yes normal to inspection Palpation (GI): Soft to palpation Percussion: Yes normal to percussion Auscultation: normal bowel sounds Assessment and Plan Assessment & Plan (1) Colon polyps: Comment: 2015 colonoscopy, normal 2020 Dr. Pineda Code(s): K63.5 - Polyp of colon (2) Annual physical exam: Code(s): Z00.00 - Encounter for general adult medical examination without abnormal findings Plan: Well-balanced diet regular physical activity discussed with the patient (3) Anxiety: Comment: Controlled on sertraline Code(s): F41.9 - Anxiety disorder, unspecified Coding Level of Care Code Est Pt Level 3 (87512) Diagnoses Colon polyps K63.5 Annual physical exam Z00.00 Anxiety F41.9
[2024-02-12 10:14] VITALS: BP 118/76; PULSE 65; O2SAT 98; BMI 25.0
== END 2024-02-12 10:57 | disposition home or self-care (01) ==
PROVIDERS: PCP Internal Medicine; Visit Provider Internal Medicine
DX: K63.5 Polyp of colon (principal); Z00.00 Encounter for general adult medical examination without abnormal findings; F41.9 Anxiety disorder, unspecified
CPT/HCPCS: 99213

== ENCOUNTER 2024-07-19 10:30 | Outpatient (AMB) | payer MEDICARE, MEDICAID, SELFPAY ==
--- NOTE | 2024-07-19 10:34 | MHC.PC.OV ---
Vital Signs 07/19/24 10:35 Height 5 ft 9 in Weight 168 lb BMI 24.8 BP 112/74 Blood Pressure Location Lt brachial Position Sitting Pulse 65 Pulse Source Pulse Oximeter Pulse Oximetry (%) 97 Oxygen Delivery Method Room Air Intake Visit Reasons: 6M F/U per KAREN Intake Note: Pt is here today for 6 months follow up visit. Allergies bupropion [From Wellbutrin] Allergy (Intermediate, Verified 07/19/24 10:38) memory deficit clarithromycin Allergy (Intermediate, Verified 07/19/24 10:38) rash metronidazole Allergy (Intermediate, Verified 07/19/24 10:38) rash Medication List - Last Reconciled 07/19/24 by Ivonne Aldana MD alfuzosin ER 10 mg PO QPM donepezil 5 mg PO DAILY sertraline 50 mg PO DAILY Tobacco use date assessed: 07/19/24 Fall risk assessment: No Falls in past year Last assessed Fall Risk: 07/19/24 Dental Screening Dental Screen Date: 07/19/24 Did you have a dental visit in the last 12 months?: Yes Did you have a dental problem in the last 6 months where you did not have access to dental care?: No Was dental information given to patient?: Patient has dentist HPI 6M F/U per KAREN HPI Details Pt presents for f/u anxiety, BPH PFSH Medical History Right inguinal hernia Recurrent right inguinal hernia Night sweats Abdominal pain Gastritis Anxiety Colon polyps Memory loss BPH (benign prostatic hyperplasia) Surgical History History of right inguinal hernia repair (~01/05/24) Hx of hernia repair History of femoral hernia repair H/O colonoscopy Family History Father No problems noted. Mother No problems noted. Social History Housing: House Alcohol intake: current Alcohol intake frequency: holidays/special occasions only Comment: COUNTS CORRECT Patient Tobacco Use Status: Never used Tobacco e-Cigarette/Vaping Use: Never Used service: No Current occupational status: retired Cognitive needs: No Hearing needs: No Vision needs: Yes Questionnaire Thrive Questionnaire Date Thrive assessed: 02/12/24 AUDIT C Alcohol Use Questionnaire (AUDIT-C) 1. How often do you have a drink containing alcohol?: Monthly or less 2. How many drinks containing alcohol do you have on a typical day when you are drinking?: 1 or 2 3. How often do you have six or more drinks on one occasion?: Never Total Score: 1 KELSEY-7 AMB Questionnaire KELSEY-7 Date KELSEY - 7 assessed: 02/12/24 Source: Developed by Drs. Neal Mckeon, Hanna Anaya, Nacho Mckinney and colleagues, with an educational noelle from [employer]. Review of Systems Const All systems reviewed & are unremarkable except as noted in HPI and below ENT Reports no additional complaints Card Reports no additional complaints Resp Reports no additional complaints GI Reports no additional complaints Physical exam (Primary Care) Vital Signs: Last Vital Signs Pulse 65 07/19/24 10:35 BP 112/74 07/19/24 10:35 Pulse Ox 97 07/19/24 10:35 Oxygen Delivery Method Room Air 07/19/24 10:35 BMI result Body Mass Index 24.8 Tobacco/Smoking Status: Tobacco use Status Tobacco use date assessed 07/19/24 07/19/24 10:40 Patient Tobacco Use Status Never used Tobacco 07/19/24 10:40 e-Cigarette/Vaping Use Never Used 07/19/24 10:38 Thrive Assessment: Date of Thrive Assessment Date Thrive assessed 02/12/24 07/19/24 10:38 Const General: no acute distress HENMT Head: Yes normal to inspection Face and sinus: Yes normal facial exam Neck Neck: Yes no lymphadenopathy and Yes supple Resp Effort & Inspection: normal respiratory effort Auscultation: clear to auscultation bilaterally Cardio Rhythm: regular rhythm Heart sounds: S1 normal heart sound present and S2 normal heart sound present GI Inspection: Yes normal to inspection Palpation (GI): Soft to palpation Percussion: Yes normal to percussion Coding Level of Care Code Est Pt Level 3 (67495) Diagnoses BPH (benign prostatic hyperplasia) N40.0 Anxiety F41.9 Annual physical exam Z00.00 Assessment & Plan Assessment & Plan (1) BPH (benign prostatic hyperplasia): Code(s): N40.0 - Benign prostatic hyperplasia without lower urinary tract symptoms Category: Medical Plan: Follow-up with urology continue alfuzosin (2) Anxiety: Comment: Controlled on sertraline Code(s): F41.9 - Anxiety disorder, unspecified Category: Medical Plan: Continue sertraline stress management discussed with the patient (3) Annual physical exam: Code(s): Z00.00 - Encounter for general adult medical examination without abnormal findings Category: Medical Plan: Return for physical in 6 months with a fasting labs before Orders: Orders Comprehensive [place]. Panel Fast 6 Months F41.9 - Anxiety disorder, unspecified, N40.0 - Benign prostatic hyperplasia without lower urinary tract symptoms, Z00.00 - Encounter for general adult medical examination without abnormal findings Complete Blood Count Auto Diff 6 Months F41.9 - Anxiety disorder, unspecified, N40.0 - Benign prostatic hyperplasia without lower urinary tract symptoms, Z00.00 - Encounter for general adult medical examination without abnormal findings Vitamin B12 and Folate 6 Months F41.9 - Anxiety disorder, unspecified, N40.0 - Benign prostatic hyperplasia without lower urinary tract symptoms, Z00.00 - Encounter for general adult medical examination without abnormal findings PSA,Total (Free>4and<10) 6 Months F41.9 - Anxiety disorder, unspecified, N40.0 - Benign prostatic hyperplasia without lower urinary tract symptoms, Z00.00 - Encounter for general adult medical examination without abnormal findings UA w Microscopic 6 Months F41.9 - Anxiety disorder, unspecified, N40.0 - Benign prostatic hyperplasia without lower urinary tract symptoms, Z00.00 - Encounter for general adult medical examination without abnormal findings Lipid Panel 6 Months F41.9 - Anxiety disorder, unspecified, N40.0 - Benign prostatic hyperplasia without lower urinary tract symptoms, Z00.00 - Encounter for general adult medical examination without abnormal findings Medications: Discontinued donepezil Discontinued Reason: Doctor's Order 5 mg PO DAILY 90 tabs 0RF
[2024-07-19 10:35] VITALS: BP 112/74; PULSE 65; O2SAT 97; BMI 24.8
== END 2024-07-19 11:03 | disposition home or self-care (01) ==
PROVIDERS: PCP Internal Medicine; Visit Provider Internal Medicine
DX: N40.0 Benign prostatic hyperplasia without lower urinary tract symptoms (principal); F41.9 Anxiety disorder, unspecified; Z00.00 Encounter for general adult medical examination without abnormal findings

== ENCOUNTER → 2024-07-19 10:30 | Outpatient (BNVA) | payer MEDICARE, MEDICAID, SELFPAY | PROVIDERS: PCP Internal Medicine; Visit Provider Internal Medicine | DX: F41.9 Anxiety disorder, unspecified (principal); N40.0 Benign prostatic hyperplasia without lower urinary tract symptoms | CPT/HCPCS: 99212 ==

== ENCOUNTER → 2024-07-27 08:20 | Outpatient (RCR) | payer MEDICARE, SELFPAY ==
--- NOTE | 2023-06-16 13:54 | MHC.PT.EP ---
[facility] [place] Office [place] Office [place] Office [address] [phone] F: [phone] F: [phone] F: [phone] F: [phone] Physical Therapy Plan of Care Date of Evaluation: Date of Surgery: Diagnosis: pain in R ankle and foot Assessment: Patient is a 78 year old R handed Ivorian speaking male who presents with s/s consistent with a R ankle/heel pain. He does not currently work but likes to be active during the day. Patient past medical history is non-contributory. Current impairments include pain, tenderness to palpation, ROM, strength, activity tolerance and functional mobility. Functional limitations include decreased ability to stand, walk, sit, and be comfortable during the day. Patient is motivated with good rehab potential. Skilled PT will address impairments and functional limitations in order to achieve goals. Frequency and Duration: The patient will be seen 2x/week for 5 weeks Short Term Goals: I with HEP - 2 weeks TTP in plantar surface absent - 3 weeks Able to walk 10 minutes pain free - 3 weeks Senior Auditor Goals: LEFS 56/80 or better - 5 weeks Able to walk 20 minutes without pain - 5 weeks Ankle strength 4+/5 grossly - 5 weeks Treatment Plan: Modalities to reduce pain, spasms and effusion. Manual therapy to restore motion and function. Therapeutic exercise to improve strength and flexibility. Neuromuscular re-education for posture and balance. Therapeutic activities to return to functional activities of daily living. Electronically signed by: Bradley Steward PT Please sign and return to therapist. Thank you for your referral.
--- NOTE | 2024-07-27 08:18 | MHC.PT.DC ---
[facility] [place] Office [place] Office [place] Office [address] Carmen Sagastume [address] [phone] F: [phone] F: [phone] F: [phone] F: [phone] Physical Therapy Discharge Report Diagnosis: pain in R ankle and foot Date of Surgery: Date of Evaluation: 06/16/23 Date of Discharge: 10/01/23 Treatments to Date: 2 Cancellations to Date: No Shows to Date: Discharge Status: Independent with HEP Discharge Summary: 06/25/23: pt responding well to current program. added gastroc and soleus stretching to HEP. He will attempt HEP exclusively and return if needed. Patient is a 78 year old R handed Kiswahili speaking male who presents with s/s consistent with a R ankle/heel pain. He does not currently work but likes to be active during the day. Patient past medical history is non-contributory. Current impairments include pain, tenderness to palpation, ROM, strength, activity tolerance and functional mobility. Functional limitations include decreased ability to stand, walk, sit, and be comfortable during the day. Patient is motivated with good rehab potential. Skilled PT will address impairments and functional limitations in order to achieve goals. Electronically signed by: Bradley Steward, PT Please sign and return to therapist. Thank you for your referral.
== END | disposition home or self-care (01) ==
LOC: HO.PTCHIC 06-16 12:52
PROVIDERS: PCP Internal Medicine; Visit Provider Internal Medicine
DX: M25.571 Pain in right ankle and joints of right foot (principal)
CPT/HCPCS: 97035; 97110; 97140; 97161

== ENCOUNTER 2024-11-09 11:34 | Outpatient (AMB) | payer MEDICARE, MEDICAID, SELFPAY ==
--- NOTE | 2024-11-09 11:58 | MHC.PC.OV ---
Vital Signs 11/09/24 12:04 Height 5 ft 9 in Weight 170 lb BMI 25.1 BP 124/78 Blood Pressure Location Lt brachial Position Sitting Pulse 77 Pulse Source Pulse Oximeter Pulse Oximetry (%) 98 Oxygen Delivery Method Room Air Intake Visit Reasons: Rash on leg Intake Note: Pt is here today for a sick visit. Pt c/o rash around groin area. Pt states that he has that in the past and the cream that he got helped but the rash comes back. Allergies bupropion [From Wellbutrin] Allergy (Intermediate, Verified 11/09/24 12:07) memory deficit clarithromycin Allergy (Intermediate, Verified 11/09/24 12:07) rash metronidazole Allergy (Intermediate, Verified 11/09/24 12:07) rash Medication List - Last Reconciled 11/09/24 by Ivonne Aldana MD alfuzosin ER 10 mg PO QPM clobetasol 0.05% 1 appl topical BEDTIME sertraline 50 mg PO DAILY Tobacco use date assessed: 11/09/24 Fall risk assessment: No Falls in past year Last assessed Fall Risk: 11/09/24 Dental Screening Dental Screen Date: 11/09/24 Did you have a dental visit in the last 12 months?: Yes Did you have a dental problem in the last 6 months where you did not have access to dental care?: No Was dental information given to patient?: Patient has dentist HPI Rash on leg HPI Details Patient complains of persistent chronic rash on both inner thighs and groin area for months. He has been using clobetasol cream which initially helped but the rash worsened with continuous use of the cream. [facility] Medical History Right inguinal hernia Recurrent right inguinal hernia Night sweats Abdominal pain Gastritis Anxiety Colon polyps Memory loss BPH (benign prostatic hyperplasia) Surgical History History of right inguinal hernia repair (~01/05/24) Hx of hernia repair History of femoral hernia repair H/O colonoscopy Family History Father No problems noted. Mother No problems noted. Social History Housing: House Alcohol intake: current Alcohol intake frequency: holidays/special occasions only Comment: COUNTS CORRECT Patient Tobacco Use Status: Never used Tobacco e-Cigarette/Vaping Use: Never Used service: No Current occupational status: retired Cognitive needs: No Hearing needs: No Vision needs: Yes Questionnaire PHQ-9 Over the last 2 weeks, how often have you been bothered by any of the following problems? 1. Little interest or pleasure in doing things: not at all 2. Feeling down, depressed, or hopeless: not at all 3. Trouble falling or staying asleep, or sleeping too much: not at all 4. Feeling tired or having little energy: not at all 5. Poor appetite or overeating: not at all 6. Feeling bad about yourself - or that you are a failure or have let yourself or your family down: not at all 7. Trouble concentrating on things, such as reading the newspaper or watching television: not at all 8. Moving or speaking so slowly that other people could have noticed. Or the opposite - being so fidgety or restless that you have been moving around a lot more than usual: not at all 9. Thoughts that you would be better off or of hurting yourself in some way: not at all Total score: 0 Depression Screening Interpretation: Negative Depression Screening Done: Yes 91822 - PHQ-9 Billing: Yes Source: Developed by Drs. Neal Mckeon, Hanna Anaya, Nacho Mckinney and colleagues, with an educational noelle from [employer]. Thrive Questionnaire Date Thrive assessed: 11/09/24 I am a: Patient What is your living situation today?: I have a steady place to live Within the past 12 months, did the food you bought not last and you didn't have the money to get more?: Never true Within the past 12 months, did you worry whether your food would run out before you got money to buy more?: Never true Do you have trouble paying for medicines?: No Do you have trouble getting transportation to medical appointments?: No Do you have trouble paying your heating and electricity bill?: No Do you have trouble taking care of your child, family member or friend?: No Do you have trouble with day-to-day activities such as bathing, preparing meals, shopping, managing finances, etc.?: No Are you currently unemployed and looking for a job?: No Are you interested in more education?: No Please select the resources that you would like help with: None THRIVE Score: 0 AUDIT C Alcohol Use Questionnaire (AUDIT-C) 1. How often do you have a drink containing alcohol?: Monthly or less 2. How many drinks containing alcohol do you have on a typical day when you are drinking?: 1 or 2 3. How often do you have six or more drinks on one occasion?: Never Total Score: 1 KELSEY-7 AMB Questionnaire KELSEY-7 Date KELSEY - 7 assessed: 11/09/24 Feeling nervous, anxious, or on edge: 0 = Not at all Not being able to stop or control worryin = Not at all Worrying too much about different things: 0 = Not at all Trouble relaxin = Not at all Being so restless that it is hard to sit still: 0 = Not at all Becoming easily annoyed or irritable: 0 = Not at all Feeling afraid as if something awful might happen: 0 = Not at all Total KELSEY-7 score (0-4 normal; 5-9 mild; 10-14 moderate; 15-21 severe): 0 Source: Developed by Drs. Neal Mckeon, Hanna Anaya, Nacho Mckinney and colleagues, with an educational noelle from [employer]. KELSEY-7 Assessment Billing KELSEY-7 Assessment Tool: KELSEY-7 Assessment 98658 Review of Systems Const All systems reviewed & are unremarkable except as noted in HPI and below Reports no additional complaints Eyes Reports no additional complaints ENT Reports no additional complaints Card Reports no additional complaints Resp Reports no additional complaints GI Reports no additional complaints Reports no additional complaints Musc Reports no additional complaints Physical exam (Primary Care) Vital Signs: Last Vital Signs Pulse 77 11/09/24 12:04 BP 124/78 11/09/24 12:04 Pulse Ox 98 11/09/24 12:04 Oxygen Delivery Method Room Air 11/09/24 12:04 BMI result Body Mass Index 25.1 Tobacco/Smoking Status: Tobacco use Status Tobacco use date assessed 11/09/24 11/09/24 12:10 Patient Tobacco Use Status Never used Tobacco 11/09/24 12:10 e-Cigarette/Vaping Use Never Used 11/09/24 11:59 PHQ-9: PHQ-9 Score PHQ-9: Total score 0 11/09/24 12:10 Depression Screening Interpretation: Negative Thrive Assessment: Date of Thrive Assessment Date Thrive assessed 11/09/24 11/09/24 12:10 Const General: no acute distress HENMT Head: Yes normal to inspection Throat: Yes posterior oropharynx normal Neck Neck: Yes supple Resp Effort & Inspection: normal respiratory effort Auscultation: clear to auscultation bilaterally Cardio Rhythm: regular rhythm Heart sounds: S1 normal heart sound present and S2 normal heart sound present Skin Other: Erythematous pustular rash on inguinal area and inner thighs bilaterally Coding Level of Care Code Est Pt Level 3 (15849) Diagnoses Rash R21 Anxiety F41.9 Additional Codes KELSEY-7 Assessment Billing - KELSEY-7 Assessment Tool: KELSEY-7 Assessment 82505 ([id number]) PHQ-9 - 49371 - PHQ-9 Billing: Yes ([id number]) Assessment & Plan Assessment & Plan (1) Rash: Comment: Secondary to steroid topical cream Code(s): R21 - Rash and other nonspecific skin eruption Category: Medical Plan: Patient was advised to stop using clobetasol cream and doxycycline 100 mg b.i.d. for 10 days is prescribed. (2) Anxiety: Comment: Controlled on sertraline Code(s): F41.9 - Anxiety disorder, unspecified Category: Medical Plan: Continue sertraline Medications: New doxycycline hyclate 100 mg PO BID 20 tabs 0RF Refilled sertraline 50 mg PO DAILY 90 tabs 3RF Discontinued clobetasol 0.05% Discontinued Reason: Doctor's Order 1 appl topical BEDTIME 45 grams 1RF
[2024-11-09 12:04] VITALS: BP 124/78; PULSE 77; O2SAT 98; BMI 25.1
== END 2024-11-09 12:44 | disposition home or self-care (01) ==
PROVIDERS: PCP Internal Medicine; Visit Provider Internal Medicine
DX: R21 Rash and other nonspecific skin eruption (principal); F41.9 Anxiety disorder, unspecified

== ENCOUNTER → 2024-11-09 11:34 | Outpatient (BNVA) | payer MEDICARE, MEDICAID, SELFPAY | PROVIDERS: PCP Internal Medicine; Visit Provider Internal Medicine | DX: R21 Rash and other nonspecific skin eruption (principal); F41.9 Anxiety disorder, unspecified | CPT/HCPCS: 96127; 99212 ==

== ENCOUNTER 2025-01-24 07:03 | Outpatient (REF) | payer MEDICARE, MEDICAID, SELFPAY ==
--- OUTSIDE RECORDS SUMMARY | 2025-01-24 07:06 | XMS_ITS | Clinical Summary ---
Author Organization [employer] Address [address] [facility] [address] [place] [address] Care Team Providers Care Pivot End Polisher Name Role Phone Unavailable Primary Care Provider Unavailabl e Encounters Date Type Department Care Team Description 01/06/2025 9:00 AM EDT Office Visit [place] [address] [place] [address] Puneet Morris Jr., DMD from Last 3 Months Social History Tobacco Use Types Packs/Day Years Used Date Smoking Tobacco: Never Assessed Sex and Gender Information Value Date Recorded Sex Assigned at Male 01/06/2025 7:41 AM EDT Legal Sex Male 5:35 PM EDT Gender Identity I'm not sure/ don't know my gender identity 01/06/2025 7:41 AM EDT Sexual Orientation Choose not to disclose 2024 7:41 AM EDT Plan of Treatment Health Maintenance Due Date Last Done Comments Depression Screening 1945 Lipid Panel 1945 SDOH Screening 1945 Alcohol/Substance Use Screening 1958 Tobacco Screening 1958 Hepatitis C Screening 02/29/1964 DTaP/Tdap/Td Vaccines (1 - Tdap) 1965 Pneumococcal Vaccine: 50+ Years (1 of 1 - PCV) 02/29/1996 Zoster Vaccines (1 of 2) 02/29/1996 Dental X-Ray: Full Mouth 03/22/2017 03/21/2014 Dental X-Ray: Bitewings 01/09/2019 01/08/2018, 03/21 Dental Oral Exam 03/03/2020 09/02/2019, 02/2019, 07/16/2018, Additional history exists Dental Prophylaxis 03/03/2020 09/02/2019, 0 01/21/2019, 07/16/2018, Additional history exists RSV Patients and Patients Aged 60 years or older (1 - 1-dose 75+ series) 2021 COVID-19 Vaccine ( season) 2024 01/17/2021, 12/27/2020 Influenza Vaccine (#1) 2024 HIB Vaccines Aged Out No longer eligi ble based on patient's age to complete this topic HPV Vaccines Aged Out No longer eligi ble based on patient's age to complete this topic Hepatitis A Vaccines Aged Out No long er eligible based on patient's age to complete this topic Hepatitis B Vaccines Aged Out No long er eligible based on patient's age to complete this topic IPV Vaccines Aged Out No longer eligi ble based on patient's age to complete this topic Meningococcal Vaccine Aged Out No meghan steve eligible based on patient's age to complete this topic RSV under 20 months Aged Out No longe r eligible based on patient's age to complete this topic Rotavirus Vaccines Aged Out No longer eligible based on patient's age to complete this topic Procedures Procedure Name Priority Date/Time Associated Diagnosis Comments CASE PRESENTATION, DETAILED AND EXTENSIVE TREATMENT PLANNING Routine 01/06/2025 9:00 AM EDT 23 EXTRACTION, ERUPTED TOOTH OR EXPOSED ROOT (ELEVATION/FORCEPS REMOVAL) Routine 01/06/2025 9:00 AM EDT 22 EXTRACTION, ERUPTED TOOTH OR EXPOSED ROOT (ELEVATION/FORCEPS REMOVAL) Routine 01/06/2025 9:00 AM EDT 17 EXTRACTION Routine 01/06/2025 12:00 AM EDT 18 EXTRACTION Routine 01/06/2025 12:00 AM EDT 19 EXTRACTION Routine 01/06/2025 12:00 AM EDT 20 EXTRACTION Routine 01/06/2025 12:00 AM EDT 21 EXTRACTION Routine 01/06/2025 12:00 AM EDT 28 EXTRACTION Routine 01/06/2025 12:00 AM EDT 29 EXTRACTION Routine 01/06/2025 12:00 AM EDT 30 EXTRACTION Routine 01/06/2025 12:00 AM EDT 31 EXTRACTION Routine 01/06/2025 12:00 AM EDT 25 EXTRACTION Routine 01/06/2025 12:00 AM EDT 24 EXTRACTION Routine 01/06/2025 12:00 AM EDT PROPHYLAXIS - ADULT Routine 09/02/2019 1 2:00 AM EST PERIODIC ORAL EVALUATION - ESTABLISHED PATIENT Routine 09/02/2019 12:00 AM EST BITEWINGS - 2 RADIOGRAPHIC IMAGES Routine 01/08/2018 12:00 AM EDT INTRAORAL - COMPLETE SERIES OF RADIOGRAPHIC IMAGES Routine 03/21/2014 12:00 AM EDT from Last 3 Months or Most Recently Relevant to Health Maintenance Insurance DENTAL - HSN FULL (MEDICAID)
--- OUTSIDE RECORDS SUMMARY | 2025-01-24 07:06 | XMS_ITS | Encounter Summary ---
Author Organization [employer] Address [address] [facility] [address] [place] [address] Care Team Providers Care Archaeology Professor Name Role Phone Unavailable Primary Care Provider Unavailabl e Encounter Details Date Type Department Care Team (Late st Contact Info) Description 10/06/2022 Abstract [facility] [address] [place] [place] [address] Dental, Provider, DDS Social History Tobacco Use Types Packs/Day Years Used Date Smoking Tobacco: Never Assessed Sex and Gender Information Value Date Recorded Sex Assigned at Male 01/06/2025 7:41 AM EDT Legal Sex Male 5:35 PM EDT Gender Identity I'm not sure/ don't know my gender identity 01/06/2025 7:41 AM EDT Sexual Orientation Choose not to disclose 2024 7:41 AM EDT documented as of this encounter Plan of Treatment Not on file documented as of this encounter Procedures Procedure Name Priority Date/Time Associated Diagnosis Comments CASE PRESENTATION, DETAILED AND EXTENSIVE TREATMENT PLANNING Routine 08/29/2022 12:00 AM EST documented in this encounter Visit Diagnoses Not on filedocumented in this encounter
--- OUTSIDE RECORDS SUMMARY | 2025-01-24 07:06 | XMS_ITS | Encounter Summary ---
Author Organization [employer] Address [address] [facility] [address] [place] [address] Care Team Providers Care Athletic Scout Name Role Phone Unavailable Primary Care Provider Unavailabl e Encounter Details Date Type Department Care Team (Latest Contact Info) Description 09/02/2019 Abstract [facility] Dental, Provider, DDS Social History Tobacco Use [...] on file documented as of this encounter Visit Diagnoses Not on filedocumented in this encounter
--- OUTSIDE RECORDS SUMMARY | 2025-01-24 07:06 | XMS_ITS | Encounter Summary ---
Author Organization [employer] Address [address] [facility] [address] [place] [address] Care Team Providers Care Armoured Car Escort Name Role Phone Unavailable Primary Care Provider Unavailabl e Encounter Details Date Type Department Care Team (Latest Contact Info) Description 01/21/2019 Abstract [facility] Dental, Provider, DDS Social [...]
[2025-01-24 10:01] LABS: MANUAL DIFF FLAG NO
[2025-01-24 10:06] LABS: Basophils Percent Auto 0.6 % (0-2); Eosinophils Absolute Auto 0.1 X10*3/uL (0.0-0.4); Eosinophils Percent Auto 1.3 % (0-4); Hematocrit 40.6 % (42.0-52.0); Hemoglobin 13.9 g/dl (14.0-18.0); Imm Gran Abs Auto 0.02 X10*3/uL (0.00-0.03); Imm Gran Pct Auto 0.4 % (0.0-0.4); Lymphocytes Absolute Auto 1.3 X10*3/uL (1.2-4.9); Lymphocytes Percent Auto 23.8 % (20-40); Mean Corpuscular HGB Conc 34.2 g/dl (31.0-36.0); Mean Corpuscular Hemoglobin 32.5 pg (27.0-33.0); Mean Corpuscular Volume 94.9 fL (80.0-98.0); Monocytes Absolute Auto 0.4 X10*3/uL (0.1-1.2); Neutrophils Absolute Auto 3.5 x10*3/uL (2.0-8.3); Neutrophils Percent Auto 66.9 % (45-73); Platelet Count 175 X10*3/uL (160-400); Red Blood Count 4.28 X10*6/uL (4.60-5.80); Red Cell Distribution Width 12.5 % (11.0-16.0); White Blood Count 5.3 X10*3/uL (4.8-10.8)
[2025-01-24 10:11] LABS: Appearance Urine Clear; Color Urine Yellow; Glucose Urine UA Negative (Negative); Leukocyte Esterase Urine Negative (Negative); Nitrite Urine Negative (Negative); PH 5.5 (5.0-9.0); Specific Gravity - Urine 1.015 (1.005-1.025); Urine Blood Negative (Negative); Urine Ketones Negative (Negative); Urine Protein Negative (Neg-Trace)
[2025-01-24 10:15] LABS: Bacteria Urine None Seen (None Seen); Hyaline Casts Urine 0-2 /LPF (0-2); RBC Urine 0-2 /HPF (0-2); Squamous Epithelial Cell Urine 0-2 /HPF (0-2); WBC Urine 0-5 /HPF (0-5)
[2025-01-24 10:30] LABS: Alanine Aminotransferase 23 U/L (0-40); Albumin Level 4.1 g/dL (3.5-5.0); Alkaline Phosphatase 51 U/L (39-117); Anion Gap 10 (12-20); Aspartate Amino Transferase 28 U/L (5-37); Bilirubin Total 0.8 mg/dL (0.0-1.0); Blood Urea Nitrogen 16 mg/dL (9-16); Calcium 9.6 mg/dL (8.4-10.2); Carbon Dioxide 27 mmol/L (22-29); Chloride 110 mmol/L (96-108); Cholesterol 135 mg/dL (<200); Estimated Glomerular Filt Rate > 60; Glucose Fasting 90 mg/dL (60-99); HDL Cholesterol 52 mg/dL (>40); LDL Cholesterol Calculated 73 mg/dL (<100); Potassium 3.8 mmol/L (3.3-5.1); Sodium 143 mmol/L (135-145); Total Protein 7.1 g/dL (6.5-8.0); Triglycerides 50 mg/dL (<150)
[2025-01-24 10:57] LABS: Folate 10.6 ng/mL (> or = 4.0); Vitamin B12 545 pg/mL (200-900)
[2025-01-24 11:18] LABS: PSA,Total (Free>4and<10) 0.74 ng/mL (0.00-4.00)
== END 2025-01-24 07:04 | disposition home or self-care (01) ==
LOC: HO.HMGCLDS 07:03
PROVIDERS: PCP Internal Medicine; Visit Provider Internal Medicine
DX: Z00.00 Encounter for general adult medical examination without abnormal findings (principal); N40.0 Benign prostatic hyperplasia without lower urinary tract symptoms; F41.9 Anxiety disorder, unspecified; Z12.5 Encounter for screening for malignant neoplasm of prostate; Z13.6 Encounter for screening for cardiovascular disorders
CPT/HCPCS: 36415; 80053; 80061; 81001; 82607; 82746; 84153; 85025

== ENCOUNTER 2025-01-27 11:57 | Outpatient (AMB) | payer MEDICARE, MEDICAID, SELFPAY ==
[2025-01-27 12:04] VITALS: BP 108/66; PULSE 72; RESP 18; TEMP 36.7; O2SAT 97; BMI 25.2
--- NOTE | 2025-01-27 12:04 | MHC.PC.OV ---
Vital Signs 01/27/25 12:04 Height 5 ft 9 in Weight 171 lb BMI 25.2 BP 108/66 Blood Pressure Location Rt brachial Position Sitting Respiration 18 Pulse 72 Pulse Source Pulse Oximeter Temp 98.1 F Temp Source Oral Pulse Oximetry (%) 97 Oxygen Delivery Method Room Air Intake Visit Reasons: Annual PE - see comments Allergies bupropion [From Wellbutrin] Allergy (Intermediate, Verified 11/09/24 12:07) memory deficit clarithromycin Allergy (Intermediate, Verified 11/09/24 12:07) rash metronidazole Allergy (Intermediate, Verified 11/09/24 12:07) rash Medication List - Last Reconciled 01/27/25 by Ivonne Aldana MD alfuzosin ER 10 mg PO DAILY sertraline 50 mg PO DAILY Tobacco use date assessed: 01/27/25 Fall risk assessment: No Falls in past year Last assessed Fall Risk: 01/27/25 Dental Screening Dental Screen Date: 11/09/24 HPI Annual PE - see comments HPI Details Pt presents for PE. PFSH Medical History Right inguinal hernia Recurrent right inguinal hernia Night sweats Abdominal pain Gastritis Anxiety Colon polyps Memory loss BPH (benign prostatic hyperplasia) Surgical History History of right inguinal hernia repair (~01/05/24) Hx of hernia repair History of femoral hernia repair H/O colonoscopy Family History Father No problems noted. Mother No problems noted. Social History Housing: House Alcohol intake: current Alcohol intake frequency: holidays/special occasions only Comment: COUNTS CORRECT Patient Tobacco Use Status: Never used Tobacco e-Cigarette/Vaping Use: Never Used service: No Current occupational status: retired Cognitive needs: No Hearing needs: No Vision needs: Yes Questionnaire Thrive Questionnaire Date Thrive assessed: 11/09/24 AUDIT C Alcohol Use Questionnaire (AUDIT-C) 1. How often do you have a drink containing alcohol?: Never 3. How often do you have six or more drinks on one occasion?: Never Total Score: 0 KELSEY-7 AMB Questionnaire KELSEY-7 Date KELSEY - 7 assessed: 11/09/24 Source: Developed by Drs. Neal Mckeon, Hanna Anaya, Nacho Mckinney and colleagues, with an educational noelle from [employer]. Review of Systems Const All systems reviewed & are unremarkable except as noted in HPI and below Reports no additional complaints Eyes Reports no additional complaints ENT Reports no additional complaints Card Reports no additional complaints Resp Reports no additional complaints GI Reports no additional complaints Reports no additional complaints Musc Reports no additional complaints Physical exam (Primary Care) Vital Signs: Last Vital Signs Temp 98.1 F 01/27/25 12:04 Pulse 72 01/27/25 12:04 Resp 18 01/27/25 12:04 BP 108/66 01/27/25 12:04 Pulse Ox 97 01/27/25 12:04 Oxygen Delivery Method Room Air 01/27/25 12:04 BMI result Body Mass Index 25.2 Tobacco/Smoking Status: Tobacco use Status Tobacco use date assessed 01/27/25 01/27/25 12:16 Patient Tobacco Use Status Never used Tobacco 01/27/25 12:04 e-Cigarette/Vaping Use Never Used 01/27/25 12:04 Thrive Assessment: Date of Thrive Assessment Date Thrive assessed 11/09/24 01/27/25 12:04 Const General: no acute distress HENMT Head: Yes normal to inspection Ears: hearing grossly normal bilaterally Face and sinus: Yes normal facial exam Mouth: Normal oral and palatal mucosa present Throat: Yes posterior oropharynx normal Eyes General: appearance normal, both eyes and all related structures Neck Neck: Yes no lymphadenopathy and Yes supple Resp Effort & Inspection: normal respiratory effort Auscultation: clear to auscultation bilaterally Cardio Rhythm: regular rhythm Heart sounds: S1 normal heart sound present and S2 normal heart sound present GI Inspection: Yes normal to inspection Palpation (GI): Soft to palpation Percussion: Yes normal to percussion Auscultation: normal bowel sounds Immunizations pneumoc 20-noelle conj-dip cr(PF) 0.5 mL IM syringe Performing Provider: Ivonne Aldana MD Performing Location: [facility] [place] [facility] Administered by: Louie Morrison CMA on 01/27/25 12:54 Dose Route Admin Location Dispensed Lot Number Expiration Date [facility] Fire[employer] Expert 0.5 mL IM Right Deltoid 0.5 mL [id number] 04/07/26 7079-9701-24 [employer] VIS Given Date VIS Provided VIS Publication Date 01/27/25 Single Vaccine 21 Eligibility Eligibility Date Funding Source Not [facility] Eligible 01/27/25 Private Coding Level of Care Code Est Pt Prev Care >65y(12037) Diagnoses Annual physical exam Z00.00 BPH (benign prostatic hyperplasia) N40.0 Anxiety F41.9 Assessment & Plan Assessment & Plan (1) Annual physical exam: Code(s): Z00.00 - Encounter for general adult medical examination without abnormal findings Category: Medical Plan: Well-balanced diet regular physical activity discussed with the patient. (2) BPH (benign prostatic hyperplasia): Comment: Established with [facility] Code(s): N40.0 - Benign prostatic hyperplasia without lower urinary tract symptoms Category: Medical Plan: Continue alfuzosin (3) Anxiety: Comment: Controlled on sertraline Code(s): F41.9 - Anxiety disorder, unspecified Category: Medical Plan: Continue sertraline and stress management discussed with the patient Orders: Orders Pneumococcal 20 Immunization Today Z23 - Encounter for immunization Comprehensive [place]. Panel Fast 1 Year N40.0 - Benign prostatic hyperplasia without lower urinary tract symptoms, Z00.00 - Encounter for general adult medical examination without abnormal findings UA w Microscopic 1 Year N40.0 - Benign prostatic hyperplasia without lower urinary tract symptoms, Z00.00 - Encounter for general adult medical examination without abnormal findings Complete Blood Count Auto Diff 1 Year N40.0 - Benign prostatic hyperplasia without lower urinary tract symptoms, Z00.00 - Encounter for general adult medical examination without abnormal findings Lipid Panel 1 Year N40.0 - Benign prostatic hyperplasia without lower urinary tract symptoms, Z00.00 - Encounter for general adult medical examination without abnormal findings PSA,Total (Free>4and<10) 1 Year N40.0 - Benign prostatic hyperplasia without lower urinary tract symptoms, Z00.00 - Encounter for general adult medical examination without abnormal findings Medications: Refilled sertraline 50 mg PO DAILY 90 tabs 3RF
--- OUTSIDE RECORDS SUMMARY | 2025-01-27 12:52 | XMS_ITS | Encounter Summary ---
Author Organization [employer] Address [address] [place] [address] Care Team Providers Care Shirt Maker Name Role Phone Unavailable Primary Care Provider [...]
--- OUTSIDE RECORDS SUMMARY | 2025-01-27 12:52 | XMS_ITS | Encounter Summary ---
Author Organization [employer] Address [address] [place] [address] Care Team Providers Care Transmission Systems Operator Name Role Phone Unavailable Primary Care Provider Unavailabl e Encounter Details Date Type Department Care Team (Late st Contact Info) Description 10/06/2022 Abstract [facility] [address] [address] Dental, Provider, DDS Social History Tobacco Use [...]
--- OUTSIDE RECORDS SUMMARY | 2025-01-27 12:52 | XMS_ITS | Clinical Summary ---
Author Organization [facility] ity Address [address] [place] [address] Care Team Providers Care Button Breaker Name Role Phone Ivonne Aldana MD Primary Care Provider [phone] Social History Tobacco Use Types Packs/Day Years Used Date Smoking Tobacco: Never Assessed Sex and Gender Information Value Date Recorded Sex Assigned at Male 01/25/2025 10:44 AM EDT Legal Sex Male 1:28 PM EST Gender Identity Male 01/25/2025 10:44 AM EDT Sexual Orientation Straight 01/25/2025 10 :44 AM EDT Last Filed Vital Signs Vital Sign Reading Time Taken Comments Blood Pressure 128/66 05/28/2022 3:21 PM EDT Sit ting L Arm Pulse 74 05/28/2022 3:21 PM EDT Temperature - - Respiratory Rate - - Oxygen Saturation - - Inhaled Oxygen Concentration - - Weight 73 kg (161 lb) 05/28/2022 3:21 PM EDT Height 170.2 cm (5' 7 ) 05/28/2022 3:21 PM EDT Body Mass Index 25.22 05/28/2022 3:21 PM EDT Plan of Treatment Upcoming Encounters Date Type Department Care Team (Late st Contact Info) Description 04/18/2025 8:15 AM EDT Appointment [facility] [address] [place] [address] Health Maintenance Due Date Last Done Comments DTaP,Tdap,and Td Vaccines (1 - Tdap) 1964 Pneumococcal Vaccine: 50+ Ye ars (1 of 1 - PCV) 02/29/1996 Zoster Vaccines (1 of 2) 02/29/1996 RSV Immunization Adult Patie nts (1 - 1-dose 75+ series) 2021 Cholesterol Screening (Lipid Panel) 09/16/2022 Depression Screening 09/16/2022 Falls Risk Assessment 09/16/2022 Hepatitis C Screening 09/16/2022 Medicare Annual Wellness Visit 09/16/2022 Social Influencers of Health Screening 09/16/2022 COVID-19 Vaccine ( - 2023-2 5 season) 2024 Influenza Vaccine (Season Ended) 2025 HIB Vaccines Aged Out No longer eligi [...] on patient's age to complete this topic MMR Vaccines Aged Out No longer eligi ble based on patient's age to complete this topic Meningococcal ACWY Vaccine Aged Out N o longer eligible based on patient's age to complete this topic Meningococcal B Vaccine Aged Out No l onger eligible based on patient's age to complete this topic RSV Immunization Patients Un kamryn 20 months Aged Out No longer eligible b ased on patient's age to complete this topic Varicella Vaccines Aged Out No longer eligible based on patient's age to complete this topic Insurance [employer] MEDICARE MEDICAID - [place] Care Teams Button Breaker Relationship Specialty Start Date End Date Ivonne Aldana MD [address] [place] [address] PCP - General 10/28/19
--- OUTSIDE RECORDS SUMMARY | 2025-01-27 12:52 | XMS_ITS | Clinical Summary ---
Author Organization [employer] Address [address] [facility] [address] [place] [address] Care Team Providers Care Elevator Operator Freight Name Role Phone Unavailable Primary Care Provider Unavailabl e Encounters Date Type Department Care Team Description 01/06/2025 9:00 AM EDT Office Visit Advance [facility] [address] [place] [address] Puneet Morris Jr., DMD from Last 3 [...]
--- OUTSIDE RECORDS SUMMARY | 2025-01-27 12:52 | XMS_ITS | Encounter Summary ---
Author Organization [employer] Address [address] [facility] [address] [place] [address] Care Team Providers Care Straight Knife Machine Cutter Name Role Phone Unavailable Primary Care Provider [...]
== END 2025-01-27 13:02 | disposition home or self-care (01) ==
LOC: HO.HMCC 11:58
PROVIDERS: PCP Internal Medicine; Visit Provider Internal Medicine
DX: Z00.00 Encounter for general adult medical examination without abnormal findings (principal); N40.0 Benign prostatic hyperplasia without lower urinary tract symptoms; F41.9 Anxiety disorder, unspecified; Z23 Encounter for immunization

== ENCOUNTER → 2025-01-27 11:57 | Outpatient (BNVA) | payer MEDICARE, OTHER, SELFPAY | PROVIDERS: PCP Internal Medicine; Visit Provider Internal Medicine | DX: Z00.00 Encounter for general adult medical examination without abnormal findings (principal); N40.0 Benign prostatic hyperplasia without lower urinary tract symptoms; F41.9 Anxiety disorder, unspecified; Z23 Encounter for immunization | CPT/HCPCS: 90471; 90677; 99397 ==